=== PATIENT | female | born 1930 | race Caucasian/White ===

== ENCOUNTER 2016-08-18 21:54 | Inpatient (IN) | payer OTHER ==
[~2016-08-18] VITALS: Ht 147.3 cm; Wt 64.0 kg
[~2016-08-18 21:54] MED LIST: AMLODIPINE BESYL5 M1 PO
--- NOTE | 2016-08-18 22:08 | ED DYSPNEA/ASTHMA COMPLAINT ---
History of Present Illness General Chief Complaint: Dyspnea (COPD, CHF, Other) Stated Complaint: PT IS HAVING SOB ,LT ARM PAIN, Source: patient, family, old records Exam Limitations: no limitations Vital Signs & Intake/Output Vital Signs & Intake/Output Vital Signs Date Time Temp Pulse Resp B/P B/P Pulse O2 O2 Flow FiO2 Mean Ox Delivery Rate 08/18 2319 Room Air 08/18 2220 98.1 58 20 129/65 95 Room Air ED Intake and Output 08/19 0000 08/18 1200 Intake Total Output Total Balance Patient 143 lb Weight Weight Reported by Patient Measurement Method Allergies Coded Allergies: shellfish derived (GOUT FLARE UP 08/18/16) Reconcile Medications Allopurinol 300 MG TABLET 300 MG PO DAILY GOUT (Reported) Amlodipine Besylate 5 MG TABLET 1 TAB PO DAILY HTN (Reported) Aspirin (Aspirin*) 81 MG TAB.CHEW 81 MG PO DAILY HEART (Reported) Calcium Carbonate/Vitamin D3 (Caltrate 600 + D Tablet) 600 MG-800 TABLET 600 MG PO DAILY VITAMIN (Reported) Furosemide 20 MG TABLET 20 MG PO DAILY HEART (Reported) Metoprolol Succ XL (Toprol XL) 25 MG TAB 25 MG PO DAILY HEART (Reported) Simvastatin (Zocor*) 40 MG TABLET 40 MG PO AT BEDTIME CHOLESTEROL (Reported) Valsartan (Diovan) 80 MG TABLET 80 MG PO DAILY HTN (Reported) Zolpidem Tartrate (Ambien) 5 MG TABLET 5 MG PO AT BEDTIME SLEEP (Reported) Triage Nurses Notes Reviewed? yes Onset: Gradual Duration: day(s):, waxing and waning Timing: recent history Severity: moderate Activities at Onset: none Prior Episodes/Possible Cause: no prior episodes Modifying Factors: Improves With: rest. Associated Symptoms: weakness HPI: 85 yo woman h/o VT in 2008, presents with dyspnea for the past 2 weeks, getting worse today. She shares, "the doctor told me to take extra lasix pills and I started urinating this evening, but I am still so short of breath." She notes coughing, with some phlegm, as well as orthopnea. No fever, chills, headache, syncopal symptoms. She notes left arm pain and slight chest pressure "all day." She notes her heart, "feels like it flips sometimes." She notes, "I can't even walk, I am so tired... I get short of breath even just walking in the kitchen." Past History Travel History Traveled to [place] past 21 day No Medical History Any Pertinent Medical History? see below for history Cardiovascular: hypertension, hyperlipidemia Musculoskeletal: gout GLOBAL COMPENSATION DIRECTOR/Reproductive: UTERINE PROLAPSE Surgical History Surgical History: non-contributory Psychosocial History What is your primary language Algerian Family History Hx Contributory? No Review of Systems Review of Systems Constitutional: Reports: no symptoms. EENTM: Reports: no symptoms. Respiratory: Reports: no symptoms. Cardiovascular: Reports: no symptoms. GI: Reports: no symptoms. Genitourinary: Reports: no symptoms. Musculoskeletal: Reports: no symptoms. Skin: Reports: no symptoms. Neurological/Psychological: Reports: no symptoms. Hematologic/Endocrine: Reports: no symptoms. Immunologic/Allergic: Reports: no symptoms. All Other Systems: Reviewed and Negative Physical Exam Physical Exam General Appearance: well developed/nourished, no apparent distress Head: atraumatic, normal appearance Eyes: Bilateral: normal appearance. Ears, Nose, Throat: normal pharynx Neck: normal inspection, supple, full range of motion Respiratory: chest non-tender, diminished on left base Cardiovascular: irregularly irregular Gastrointestinal: normal bowel sounds, soft Rectal: normal exam, normal rectal tone, heme negative stool Extremities: normal inspection, normal capillary refill, normal range of motion, no edema Neurologic/Psych: no motor/sensory deficits, awake, alert, oriented x 3 Skin: intact, normal color, warm/dry Core Measures ACS in differential dx? No Severe Sepsis Present: No Septic Shock Present: No Progress Differential Diagnosis: asthma, AMI, CHF, COPD, pneumonia, unstable angina, pleural effusion Plan of Care: Orders Procedure Date/time Status BASIC ELECTROLYTES PLUS BUN&CR 08/20 0400 Active Heart Healthy Diet 08/19 B Active TROPONIN LEVEL 08/19 1000 Active EKG 08/19 1000 Active CBC WITHOUT DIFFERENTIAL 08/19 0600 Active TROPONIN LEVEL 08/19 0400 Active EKG 08/19 0400 Active Code Status 08/19 0236 Active LOWER RESPIRATORY CULTURE 08/19 0228 Active Pathway - chart 08/19 0222 Active Pathway - chart 08/19 0220 Active House Staff 08/19 0220 Active Intake & Output 08/19 0218 Active Patient Data 08/19 0105 Active Saline Lock 08/19 0017 Active Misc Message 08/19 0017 Active ED Holding Orders 08/19 0017 Active Admit to inpatient 08/19 0017 Active Vital Signs 08/19 0017 Active Code Status 08/19 0017 Complete US-EXT BILAT VENOUS DOPPLER 08/19 UNK Active TRC EVALUATION (GEN) 08/19 UNK Active OXYGEN SETUP (GEN) 08/19 UNK Active Lab Add-on Test 08/19 UNK Active Weight 08/19 UNK Active VTE Mechanical Prophylaxis 08/19 UNK Active Vital Signs 08/19 UNK Active Intake & Output 08/19 UNK Active ECHOCARDIOGRAM 08/19 UNK Active EKG 08/18 2249 Active THYROID STIMULATING HORMONE 08/18 2214 Active GLYCOSYLATED HGB 08/18 2214 Active FREE T4 08/18 2214 Active B-TYPE NATRIURETIC PEP (BNP) 08/18 2214 Active TROPONIN LEVEL 08/18 2157 Active LIPASE 08/18 2157 Active HEPATIC FUNCTION PANEL 08/18 2157 Active D-DIMER 08/18 2157 Complete CBC WITHOUT DIFFERENTIAL 08/18 2157 Complete BASIC METABOLIC PANEL 08/18 2157 Active AMYLASE 08/18 2157 Active EKG 08/19 2155 Active Current Medications Sig/Jaswatn Start time Last Medication Dose Stop Time Status Admin Zolpidem Tartrate 5 MG AT BEDTIME 08/19 2200 UNVr (Ambien) Atorvastatin Calcium 20 MG 1700 08/19 1700 UNVr (Lipitor) Amlodipine Besylate 5 MG DAILY 08/19 1000 UNVr (Norvasc) Aspirin 81 MG DAILY 08/19 1000 UNVr (Aspirin) Calcium/Vitamin D 1 TAB DAILY 08/19 1000 UNVr (Caltrate 600 + D) Metoprolol Succinate 25 MG DAILY 08/19 1000 UNVr (Toprol XL) Furosemide 40 MG 7:30 AM, & 4:30 PM 08/19 0730 UNVr (Lasix) Acetaminophen 650 MG Q6P PRN 08/19 0230 UNVr (Tylenol) Acetaminophen/ 1 TAB Q6P PRN 08/19 0230 UNVr Hydrocodone Bitart (Vicodin) Morphine Sulfate 2 MG Q4P PRN 08/19 0230 UNVr (Morphine) Heparin Sodium 25,000 UNIT Q24H 08/19 0030 AC 08/19 (Porcine) 0141 (Heparin) Sodium Chloride 500 ML Laboratory Tests 08/18/165: Anion Gap 14, Estimated GFR 39 L, BUN/Creatinine Ratio 28.5 H, Glucose 108 H, Hemoglobin A1c Pending, Calcium 9.3, Total Bilirubin 0.6, Direct Bilirubin 0.4, AST 24, ALT 31, Alkaline Phosphatase 69, Troponin I < 0.01, Aes-K-Wmpktdzzanw Pept 3660 H, Total Protein 6.7, Albumin 3.7, Amylase 60, Lipase 87, TSH Pending , Free T4 Pending, D-Dimer 2884 H, CBC w Diff NO MAN DIFF REQ, RBC 4.59, MCV 89.6, MCH 28.6, RDW 14.6 H, MPV 9.4, Gran % 59.3, Lymphocytes % 29.4, Monocytes % 9.4 H, Eosinophils % 1.5, Basophils % 0.4, Absolute Granulocytes 3.8, Absolute Lymphocytes 1.9, Absolute Monocytes 0.6, Absolute Eosinophils 0.1, Absolute Basophils 0, PUBS MCHC 31.9 L 08/18/162207: Ayx-S-Acfukvaesfk Pept Cancelled Microbiology 08/20 227 LOWER RESP: Respiratory Culture - ORD 08/20 227 LOWER RESP: Gram Stain - ORD Diagnostic Imaging: Viewed by Me: Radiology Read. Discussed w/RAD: Radiology Read. CXR Impression: MODERATE PLEURAL EFFUSION... FULL REPORT BELOW. Initial ED EKG: AFIB Prior EKG: changed Repeat EKG: unchanged Comments: PATIENT: ANANDA CALHOUN PRESENT AGE: 85 PATIENT ACCOUNT NO: [id number] : 29 LOCATION: [facility] ORDERING PHYSICIAN: SEVERINO REYNA MD SERVICE DATE: 08/18/16 EXAM TYPE: RAD - XRY-PORTABLE CHEST XRAY EXAMINATION: XR PORTABLE CHEST CLINICAL INFORMATION: Chest pain COMPARISON: 08/05/2016 TECHNIQUE: Portable AP view of the chest was obtained. FINDINGS: Cardiac leads overlie the chest. Mitral valvular hardware in place. Median sternotomy wires appear intact. The lungs are well expanded. There is increased moderate left pleural effusion with airspace opacity. The right lung is clear. No pneumothorax. The cardiomediastinal silhouette is unchanged with a calcified aorta. IMPRESSION: Increased moderate left pleural effusion with airspace opacity. DICTATED BY: CHINO ESTRADA,ALAN DATE/TIME DICTATED:08/18/162257 GUSSET STITCHER:KARON DATE/TIME TRANSCRIBED:08/18/162257 CONFIDENTIAL, DO NOT COPY WITHOUT APPROPRIATE AUTHORIZATION. <Electronically signed in Other Vendor System> SIGNED BY: CHINO ESTRADA,ALAN 08/18 4124 Departure Departure Disposition: STILL A PATIENT Condition: Stable Clinical Impression Primary Impression: Pleural effusion Secondary Impressions: Dyspnea, Elevated d-dimer, New onset atrial fibrillation, Renal failure Referrals: Fer CASTANO MD (PCP/Family) Departure Forms: Customer Survey General Discharge Information Comments 08/18/16, 23:24... discussed with supervisor sound technician... gfr is less than 45... unable to do ct angio. 08/19/16, 0:11... discusse with cards, Dr. Mccann... will place patient on heparin... will need v/q in AM. Admission Note Spoke With: DWAYNE SHAH MD Documentation of Exam: Documentation of any treatments & extenuating circumstances including Concerns Regarding Discharge (functional status, medication knowledge or non-compliance, living conditions, etc.) that warrant an admission rather than observation: pt with new onset atrial fibrillation, significantly increasing left pleural effusion, chest pain, elevated dimer... pt merits rule out, consider v/q. pt likely needs thorocentesis. cards to consult in am. Critical Care Note Critical Care Note Critical Care Time: 30-74 min
--- NOTE | 2016-08-18 22:23 | NUR ---
Informed waiting has been performed.
--- NOTE | 2016-08-18 22:23 | NUR ---
TRIAGE: PT TO ER WITH SON C/C L ARM PAIN, ONSET 19:00, CONSTANT SINCE ONSET, UNRELIEVED WITH ASPERCREME. ALSO REPORTS SOB SINCE LAST WEEK S/P "A PROBLEM WITH TOO MUCH WATER IN HER LUNGS" PER SON. HAD XRAYS DONE AND LASIX DOSE DOUBLED BY DR CASTANO WHO ALSO ADVISED GOING TO ER IF NOT IMPROVED. HAD EKG AND EVAL BY DR REYNA IN [place] PRIOR TO TRIAGE. LABS ALSO DRAWN IN [place] BY MARS ESPANA PRIOR TO TRIAGE.
[2016-08-18 22:32] LABS: ABSOLUTE BASOPHIL COUNT 0 /CUMM (0.0-0.2); ABSOLUTE EOSINOPHIL COUNT 0.1 /CUMM (0.0-0.7); ABSOLUTE GRANULOCYTE CT 3.8 /CUMM (1.4-6.5); ABSOLUTE LYMPH COUNT 1.9 /CUMM (1.2-3.4); ABSOLUTE MONOCYTE COUNT 0.6 /CUMM (0.10-0.60); BASOPHIL % 0.4 % (0.0-2.0); EOSINOPHIL % 1.5 % (0-5); GRANULOCYTE % 59.3 % (42.2-75.2); HEMATOCRIT 41.2 % (37-47); MEAN CORPUSCULAR HGB 28.6 PG (27.0-31.0); MEAN CORPUSCULAR HGB CONC 31.9 G/DL (33.0-37.0); MEAN CORPUSCULAR VOLUME 89.6 FL (81.0-99.0); MEAN PLATELET VOLUME 9.4 FL (7.4-10.4); PLATELET COUNT 192 /CUMM (130-400); RBC DISTRIBUTION WIDTH 14.6 % (11.5-14.5); RED BLOOD CELL CT 4.59 /CUMM (4.20-5.40); WHITE BLOOD CELL COUNT 6.4 /CUMM (4.8-10.8)
--- NOTE | 2016-08-18 23:02 | RADIOLOGY REPORT ---
EXAMINATION: XR PORTABLE CHEST CLINICAL INFORMATION: Chest pain COMPARISON: 08/05/2016 TECHNIQUE: Portable AP view of the chest was obtained. FINDINGS: Cardiac leads overlie the chest. Mitral valvular hardware in place. Median sternotomy wires appear intact. The lungs are well expanded. There is increased moderate left pleural effusion with airspace opacity. The right lung is clear. No pneumothorax. The cardiomediastinal silhouette is unchanged with a calcified aorta. IMPRESSION: Increased moderate left pleural effusion with airspace opacity.
--- NOTE | 2016-08-18 23:11 | NUR ---
PT TO ROOM 5 C/C 1 DAY HX OF LEFT UPPER ARM PAIN, DENIES CHEST PAIN OR SOB. ADMITS TO RECENT EXACERBATION OF CHF, TOOK 60 MG LASIX THIS AM
--- NOTE | 2016-08-18 23:15 | NUR ---
AT BEDSIDE IV EST #20 IN RIGHT FOREARM
--- NOTE | 2016-08-18 23:19 | NUR ---
PT MEDICATED WITH 325MG ASPIRIN PER EMAR
--- NOTE | 2016-08-19 01:17 | History & Physical ---
MARCO ESTRADA,ANALISA 08/19/16 0117: General Information and HPI MD Statement: I have seen and personally examined ANANDA CALHOUN and documented this H&P. The patient is a 85 year old F who presented with a patient stated chief complaint of []. 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 Patient states that since last couple of months she was having swelling in her legs and was following Dr. Haskins. Since last 2 weeks she started having generalized weakness , cough with occasional phlegm. Since last 1 week she was feeling short of breath, so she took the consult from her PCP who advised chest x-ray. Chest x-ray showed left-sided pleural effusion. She was given 20 milligrams of Lasix. It was an effective. She continues to have short of breath and decreased urine output. She again called her PCP who advised for 2 tablets of the Lasix. She had increased urine output. Yesterday night, she was started having pain in the chest which was radiating to left arm and was associated with shortness of breath. So she called her son who advised her to go to ED. She describes her chest pain as a pressure and pain in the left arm as kind of muscular pain. She denies recent fever, dizziness, headache, nausea, vomiting, sore throat, symptoms of GERD, abdominal pain, diarrhea, constipation, dysuria, hematuria, sick contact. She is also taking care of fluid intake to around 1000cc/day, she is not controlling salt intake. 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 Allergies/Medications Allergies: Coded Allergies: shellfish derived (GOUT FLARE UP 08/18/16) Past History Travel History Traveled to [place] past 21 day No Medical History Neurological: NONE EENT: NONE Cardiovascular: hypertension, hyperlipidemia, "BROKEN HEART SYNDROME IN 2007" OR TAKOTSUBO CARDIOMYOPATHY Respiratory: ?FLUID ON THE LUNG Gastrointestinal: NONE Hepatic: NONE Renal: NONE Musculoskeletal: gout Psychiatric: NONE Endocrine: NONE Blood Disorders: NONE Cancer(s): NONE 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 Denies: chills, diaphoresis, fever. EENTM: Denies: no symptoms. Cardiovascular: Reports: chest pain, edema, orthopena, peripheral edema. Denies: palpitations. Respiratory: Reports: cough, short of breath, sputum production. Denies: hemoptysis, orthopnea, stridor, wheezing. GI: Denies: abdominal pain, bloating, constipation, diarrhea, distention, melena, nausea, vomiting. Genitourinary: Denies: no symptoms. Musculoskeletal: Denies: no symptoms. Skin: Denies: no symptoms. Exam & Diagnostic Data Last 24 Hrs of Vital Signs/I&O Vital Signs Date Time Temp Pulse Resp B/P B/P Pulse O2 O2 Flow FiO2 Mean Ox Delivery Rate 08/18 2319 Room Air 08/18 2220 98.1 58 20 129/65 95 Room Air Intake & Output 08/19 0800 08/19 0000 08/18 1600 Intake Total Output Total Balance Patient 64.864 kg Weight Weight Reported by Patient Measurement Method Physical Exam General Appearance Alert, Oriented X3, Cooperative, No Acute Distress Skin No Rashes, No Breakdown, No Significant Lesion HEENT Atraumatic, PERRLA, EOMI Neck Supple, No JVD Cardiovascular Normal S1, Normal S2, murmur present systolic Lungs decrease air entry on left base Abdomen Soft, No Tenderness, No Hepatospenomegaly Neurological Normal Speech Extremities No Clubbing, No Cyanosis, No Edema Vascular Normal Pulses, Pulses Symmetrical Last 24 Hrs of Labs/Chaitanya: Laboratory Tests 08/19/16 0400: Sodium Pending, Potassium Pending, Chloride Pending, Carbon Dioxide Pending, Anion Gap Pending, BUN Pending, Creatinine Pending, BUN/Creatinine Ratio Pending , Troponin I Pending, CBC w Diff NO MAN DIFF REQ, RBC 4.47, MCV 89.0, MCH 29.0, RDW 14.3, MPV 9.3, Gran % 48.8, Lymphocytes % 39.3, Monocytes % 8.7, Eosinophils % 2.5, Basophils % 0.7, Absolute Granulocytes 3.1, Absolute Lymphocytes 2.5, Absolute Monocytes 0.5, Absolute Eosinophils 0.2, Absolute Basophils 0, PUBS MCHC 32.6 L 08/18/165: Anion Gap 14, Estimated GFR 39 L, BUN/Creatinine Ratio 28.5 H, Glucose 108 H, Hemoglobin A1c Pending, Calcium 9.3, Total Bilirubin 0.6, Direct Bilirubin 0.4, AST 24, ALT 31, Alkaline Phosphatase 69, Troponin I < 0.01, Ymd-G-Kltanhoabfd Pept 3660 H, Total Protein 6.7, Albumin 3.7, Amylase 60, Lipase 87, TSH 6.840 H, Free T4 1.49, D-Dimer 2884 H, CBC w Diff NO MAN DIFF REQ, RBC 4.59, MCV 89.6 , MCH 28.6, RDW 14.6 H, MPV 9.4, Gran % 59.3, Lymphocytes % 29.4, Monocytes % 9.4 H, Eosinophils % 1.5, Basophils % 0.4, Absolute Granulocytes 3.8, Absolute Lymphocytes 1.9, Absolute Monocytes 0.6, Absolute Eosinophils 0.1, Absolute Basophils 0, PUBS MCHC 31.9 L 08/18/162207: Fsb-Z-Mjhnxwwrzyy Pept Cancelled Microbiology 08/20 399 UPPER RESP: Surveillance Culture - RECD 08/19 299 GI: Surveillance Culture - ORD 08/20 227 LOWER RESP: Respiratory Culture - ORD 08/20 227 LOWER RESP: Gram Stain - ORD Diagnostic Data EKG Results AF, HR-94, NJ -220,Qtc-437 I, aVL -inverted T wave CXR Results Increased moderate left pleural effusion with airspace opacity Assessment/Plan Assessment: Patient is an 85-year-old female with significant past medical history of presbycusis , gout, mitral valve replacement -bioprosthetic valve, TacoSubo cardiomyopathy, 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 Vital signs at the time of admission-temperature 98.1, pulse 58, respiratory rate 20, blood pressure 129/65, SPO2 95% on room air EKGatrial fibrillation, heart rate 94, NJ intervals 220, QTC 431, I, aVL, inverted T waves Chest x-ray - increased moderate left pleural effusion with airspace opacity. Plan - Moderate Left Sided pleural effusion - * It can be secondary to the infection, CHF, malignancy, PE * We will repeat BEP in the morning. If creatinine get improved than we will do CTA to rule out pulmonary embolization, but if creatinine remains elevated, then we will consider VQ scan. * We will consider diagnostic and therapeutic thoracentesis * If needed, we will place a consult for pulmonology for further evaluation and management Acute coronary syndrome, ? CHF * We will admit the patient to telemetry * We will do serial EKG and troponin * We will place a cardiology consult with Dr. Haskins and follow his recommendation * We will continue tab aspirin and statins * We'll follow echocardiogram * We will continue heparin drip * If Patients oxygen requirement increased to more than 4 liters, then we will consider Lasix New onset atrial fibrillation * We'll monitor the patient to telemetry floor * If she remains tachycardic, then we will consider Cardizem drip * We will continue heparin drip Acute on chronic kidney disease * We will held his Lasix and valsartan * We will repeat BEP in the morning. If creatinine get improved than we will do CTA to rule out pulmonary embolization, but if creatinine remains elevated, then we will consider VQ scan. Hypertension * We'll continue amlodipine and metoprolol Gout * We will hold allopurinol as the patient is having renal involvement/high creatinine Diet -heart healthy diet with fluid restriction to 1 liter, low salt intake DVT prophylaxis-ALP S/heparin CODE STATUS-DNR/DNI As Ranked By This Provider Problem List: 1. Pleural effusion 2. New onset atrial fibrillation 3. CHF (congestive heart failure) 4. Acute coronary syndrome 5. Gout 6. Acute kidney injury superimposed on chronic kidney disease Core Measures/Miscellaneous Acute Coronary Syndrome ACS Diagnosis: No Cerebrovascular Accident CVA/TIA Diagnosis: No Congestive Heart Failure CHF Diagnosis: No Venous Thromboembolism VTE Risk Factors: Age > 40, CHF or Resp failure, Obesity No Mech VTE prophylaxis d/t: No contraindications No VTE Pharm Prophylaxis d/t: No contraindications VTE Diagnosis: No VTE Type: NONE VTE Confirmed by (Test): NONE Severe Sepsis Severe Sepsis Present: No Septic Shock Septic Shock Present: No Miscellaneous Documentation Attending Case Discussed With: DWAYNE SHAH MD Primary Care Physician: Fer CASTANO MD Patient sees these Specialists Cardiolgy - Dr Haskins Level of Patient Care: Telemetry NICOLE DURHAM 08/19/16 0118: General Information and HPI Allergies/Medications Home Med list Allopurinol 300 MG TABLET 300 MG PO DAILY GOUT (Reported) Amlodipine Besylate 5 MG TABLET 1 TAB PO DAILY HTN (Reported) Aspirin (Aspirin*) 81 MG TAB.CHEW 81 MG PO DAILY HEART (Reported) Calcium Carbonate/Vitamin D3 (Caltrate 600 + D Tablet) 600 MG-800 TABLET 600 MG PO DAILY VITAMIN (Reported) Furosemide 20 MG TABLET 20 MG PO DAILY HEART (Reported) Metoprolol Succ XL (Toprol XL) 25 MG TAB 25 MG PO DAILY HEART (Reported) Simvastatin (Zocor*) 40 MG TABLET 40 MG PO AT BEDTIME CHOLESTEROL (Reported) Valsartan (Diovan) 80 MG TABLET 80 MG PO DAILY HTN (Reported) Zolpidem Tartrate (Ambien) 5 MG TABLET 5 MG PO AT BEDTIME SLEEP (Reported) Resident Review Statement Resident Statement: examined this patient, discussed with financial intern, agreed with financial intern, discussed with family, reviewed EMR data (avail), discussed with nursing , discussed with case mgmt, reviewed images, amended to note Other Findings: 85-year-old female with a past medical history of [place] 2008, CHF, hypertension, mitral valve replacement in 2004 hyperlipidemia, gout presented to the ED with chief complaints of dyspnea that has been going on for the past 2 weeks and has been progressively getting worse. According to the patient she was in her usual state of health more than a week ago when she started to experience shortness of breath and went to her doctor who placed her on water pills around August 05. He also sent her for x-rays which revealed some pleural effusion. She was started on 20 mg of Lasix by her primary care physician. She states that over the course of the next few days her shortness of breath continued to improve however with this morning and just got worse and she called her primary care physician Dr. Kat who asked her to take 2 more doses of Lasix in addition to 20 mg that she had already taken. Of note she has not been urinating much within the past couple of days. She states that she went to bed this evening and felt pain in her left arm. She states that she worked aspirin cream which did not really help her and so got her anxious, she became more short of breath and called her son and decided to come to the ER for further evaluation. Of note patient's been experiencing some chest discomfort at rest. She denies palpitations but doesn't source and orthopnea, swelling in her legs. Travel history is pertinent for a trip to [place] back in May. She states when she was in [place] she had been going to the gym and walking and working out probably 40 minutes without any exertional shortness of breath. However recently she's been getting short of breath while walking even a few 100 yards. She denies any upper respiratory infection but does endorse coughing stating that she is bringing up clear phlegm. She denies any fever, chills, sore throatl noncompliance with her medications, and states that she saw Dr. Francois about 4 months ago at the time she was doing pretty well. She has never smoked and she denies any history of alcohol abuse. Vitals on admission blood pressure 129/65, respiratory rate of 20, pulse 58, afebrile saturating 95 on room air. On physical exam, she is an obese female, alert and oriented 3, hard of hearing sitting comfortably in bed. HEENT revealed PERRLA, moist mucous membranes. Examination of the neck revealed no JVD. 7 cm. Cardiovascular exam revealed a grade 3 x 6 systolic murmur heard best at the right sternal border with murmur radiating to the back. Normal S1, S2, no rubs or gallops appreciated. Respiratory exam was pertinent for decreased breath sounds in her left lower lobe, no wheezes rales or crackles appreciated. Abdominal exam is benign with abdomen soft, nontender, nondistended with bowel sounds heard in all 4 quadrants. Examination of the lower extremities revealed right lower extremity will be more swollen compared to the left with bilateral 1+ edema. Neuro exam was grossly unremarkable. Labs pertinent for normal white blood cell count of 6400, H&H of 13.1/41.2, normal MCV of 89.6 with a platelet count of 192,000. Serum chemistries and revealed sodium of 139, potassium 6, bicarbonate of 29, normal anion gap of 14, BUN 37, creatinine 1.3 (baseline is 1), LFTs unremarkable with an AST/ALT of 24/ 31, total bili chip 0.6, pulse of 69 with a troponin first set negative at less than 2.01 with a proBNP of 3660. Serum amylase 60 and lipase 87. D-dimer elevated to 2884. Chest x-ray showed mitral valvular hardware in place, lungs well expanded, increased moderate left pleural effusion with airspace opacity, right lung is clear with no pneumothorax, cardiomegaly is also unchanged with a calcified aorta. Last stress test in December 2014 showed no EKG evidence of stress-induced myocardial ischemia EKG revealed atrial fibrillation with a heart rate about 100 100s, PVCs, poor R- wave progressions, nonspecific ST-T changes in lead I and aVL. In the ER she received aspirin 325 mg oral 1 and was started on heparin drip. Assessment and plan Admit patient to telemetry. # Dyspnea Most likely secondary to left-sided pleural effusion 2/2 decompensated heart failure versus parapneumonic effusion (unlikely as she is afebrile, does not have a white blood cell count, is not bringing up purulent productive phlegm) versus malignancy (unlikely - no hx of smoking, no weight loss ets) Follow-up echocardiogram to rule out worsening valvular pathology D-dimer elevated to 2884, would consider CTA to rule out pulmonary embolism if serum creatinine improves, else V/Q scan for pulmonary embolism. Of note she is already on anticoagulation for her atrial fibrillation. Consider Lasix 40 mg IV 1 if her oxygen saturations 4 [place]er was requiring greater than 4 L of O2 by nasal cannula. Ultrasound Doppler of lower extremities to rule out DVT. Cardiology consult in a.m. with Dr. Francois Follow-up troponins and EKG at 4 AM and 10 AM to rule out ACS. #New onset A. fib Currently heart rate is in the 1 teens A heart rate is less than 1 10 bpm Her [id number] is 3 and she has been started on heparin for anticoagulation IV Cardizem pushes of 5 mg a heart rate is more than 1:30. Follow-up TSH and free T4 #Coronary artery disease Continue on atorvastatin 20 mg daily, aspirin 81 mg daily, Toprol-XL 25 mg daily. We'll hold losartan for now given AK I #AK I Her baseline creatinine is 1.0 This is most likely prerenal in the setting of dehydration versus use of Lasix vs. cardiorenal Continue to hold Lasix for now as well as losartan Nephrotoxic agents Follow-up BEP in a.m. #Impaired glycemia Most likely secondary to stress Follow-up hemoglobin A1c #Hx of Gout - On Allopurinol - Holding for now, given LYNSEY - Resume in AM if BEP is normal. - DVT prophylaxis On heparin 5000 international units 3 times a day subcutaneous Diet Heart healthy CODE STATUS DNR DNI DWAYNE SHAH 08/19/16 0508: Attending MD Review Statement Attending Statement Attending MD Statement: examined this patient, discuss w/resident/PA/CHANGEOVER OPERATOR, agreed w/resident/PA/CHANGEOVER OPERATOR, reviewed EMR data (avail), reviewed images, amended to note Attending Assessment/Plan: CC: Left shoulder Pain PMH: Gout, mitral wall replacement, "broken heart syndrome", HTN, HLD Patient's son insisted her to go to ER for persistent left arm pain. Pain started yesterday, gradual onset, nonradiating, no chest pain but chest tightness. Patient also complains of shortness of breath, which has been progressively worsening since last 3 weeks, dyspnea on exertion, then at rest, associated with leg swellings and dry cough. Patient followed up with PCP, obtain chest x-ray on August 06, she was told that she has some fluid on the left side of the, prescribed Lasix. She took 2 tablets and initial day, followed by daily tablet for one whole week. PCP called her back to follow-up, her symptoms were not getting better, so additional dose of Lasix was advised, if no relief then he suggested to go to ER. With additional dose of Lasix, patient had good urine output according to her. But she was feeling very weak and lethargic the whole day, and in the evening left arm pain started, when her son insisted to go to ER. She denies any dizziness, palpitations, headache, presyncopal symptoms, initial episode of URI symptoms, fever, chills. She does have some orthopnea. Vitals: Tachycardia, blood pressure 129/65. Afebrile On exam: A O 3, cooperative, no acute distress, neck supple, JVD minimally elevated, no lymphadenopathy, mucosa dry, no focal neurological deficit except left-sided facial twitching intermittently, no dependent edema, no obvious skin rashes or inflammation CVS: S1-S2, irregular, tachycardia, diastolic murmur mitral area, going to axilla RS: Decreased air entry left base, no crackles. Abdomen: Soft, NT, ND, bowel sounds present. Labs: WBC 6.4, granulocytes 59%, chloride 96, BUN 37, creatinine 1.3, glucose 108, calcium 9.3, troponin less than 0.01 proBNP 3660, d-dimer 2884. CXR: Increased moderate left pleural effusion with airspace opacity. EKG: A. fib A and P Patient comes in ER for persistent left arm pain, has some chest tightness but denies chest pain, chronic nonproductive cough, worsening dyspnea on excision. She is found to have A. fib probably new onset, worsening left pleural effusion with suspected airspace opacity. Patient does not have fever, chills at home, denies any URI symptoms at the beginning, no significant leukocytosis or left shift, less likely pneumonia. The same time patient's proBNP and d-dimer elevated, indicating heart failure and pulmonary embolism and differential. Minimally elevated JVD. Elevated creatinine and BUN appears most likely secondary to Lasix. # Left arm pain rule out ACS # New onset A. fib # Left-sided pleural effusion # Suspected heart failure ?Valvular disease # History of mitral wall replacement # Rule out pulmonary embolism # History of hypertension, gout - Admit to telemetry - Continuous telemetry monitoring - If heart rate persistently above 120, push of Cardizem +/- drip, if blood pressure stable - Continue heparin drip - Serial EKG and troponin - Hold Lasix and valsartan - Repeat BMP in a.m. - If creatinine improving then CTA, if creatinine is elevated then VQ scan to rule out PE - 2-D echo - Cardiology consult - According to findings on 2-D echo and VQ scan are CTA : Consult IR for thoracentesis, diagnostic - Bilateral lower extremity DVT Doppler - Continue aspirin, amlodipine, allopurinol , statin - Resume metoprolol at lower dose tomorrow if okay with cardiology
--- NOTE | 2016-08-19 01:30 | NUR ---
2ND IV SITE STARTED, PATENT, DRY AND INTACT.
--- NOTE | 2016-08-19 01:41 | NUR ---
PT MEDICATED WITH 5,000UNITS OF HEPARIN BOLUS AND HEPARIN DRIP @24.6 MLS/HR. DOSE DOUBLE CHECKED BY GRANT CHAUDHRY.
[2016-08-19] MEDS ORDERED: AMLODIPINE BES2.5 M1 PO (02:13)
[2016-08-19] MEDS ORDERED: DIOVAN80 M1 PO (02:14)
[2016-08-19] MEDS ORDERED: ASPIRIN81 M4 PO (02:15)
[2016-08-19] MEDS ORDERED: TOPROL XL25 M1 PO (02:15)
[2016-08-19] MEDS ORDERED: ALLOPURINOL300 M1 PO (02:15)
[2016-08-19] MEDS ORDERED: ZOCOR40 M1 PO (02:16)
[2016-08-19] MEDS ORDERED: CALTRATE 600 +1 EACH PO (02:17)
[2016-08-19] MEDS ORDERED: FUROSEMIDE20 M1 PO (02:17)
[2016-08-19] MEDS ORDERED: AMBIEN5 M1 PO (02:18)
--- NOTE | 2016-08-19 02:40 | NUR ---
HOUSE STAFF AT BEDSIDE
--- NOTE | 2016-08-19 02:51 | NUR ---
REPORT GIVEN TO GRANT SOTO
[2016-08-19 03:15] VITALS: BP 110/60
[2016-08-19 04:24] LABS: ABSOLUTE BASOPHIL COUNT 0 /CUMM (0.0-0.2); ABSOLUTE EOSINOPHIL COUNT 0.2 /CUMM (0.0-0.7); ABSOLUTE GRANULOCYTE CT 3.1 /CUMM (1.4-6.5); ABSOLUTE LYMPH COUNT 2.5 /CUMM (1.2-3.4); ABSOLUTE MONOCYTE COUNT 0.5 /CUMM (0.10-0.60); BASOPHIL % 0.7 % (0.0-2.0); EOSINOPHIL % 2.5 % (0-5); GRANULOCYTE % 48.8 % (42.2-75.2); HEMATOCRIT 39.8 % (37-47); MEAN CORPUSCULAR HGB CONC 32.6 G/DL (33.0-37.0); MEAN PLATELET VOLUME 9.3 FL (7.4-10.4); PLATELET COUNT 163 /CUMM (130-400); RBC DISTRIBUTION WIDTH 14.3 % (11.5-14.5); RED BLOOD CELL CT 4.47 /CUMM (4.20-5.40); WHITE BLOOD CELL COUNT 6.3 /CUMM (4.8-10.8)
--- NOTE | 2016-08-19 04:55 | NUR ---
ADMISSION NOTE- Patient arrives to Rm 103 as Tele hold at 0315am. She is able to transfer self to bed without difficulty. Patient is A&Ox3, follows commands and moves all extremities. 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 Patient is A-fib/flutter on monitor with HR in 70-100's. BP on admit is 110/60 manual. The patient is on RA with sat 96-99%. Patient is diminished to left lung base and has a dry non-productive cough. She is mildly SOB with exertion without a drop in O2 sat. She is able to ambulate to bathroom with standby assistance due to all the wires and tubing. Patient's skin is intact without edema. She has 2 patent peripheral IV's, PIVO connector placed on RFA IV. Heparin GTT infusing through LH at 23.2ml/hr or 18units/kg/hr. Patient states she is tired, and does have some anxiety about her worsening health and the fact that she is in the ICU. Patient is reassured that she is in ICU as a tele hold. Dr. Ordoñez at bedside. No further complaints from patient. Will cont to monitor.
--- NOTE | 2016-08-19 05:10 | Admission Certification ---
Admission Certification Certification Statement - As attending physician, I certify that at the time of - admission, based on clinical presentation, severity of - symptoms, need for further diagnostic testing and - therapeutic interventions, and risk of adverse outcomes - without in-hospital treatment, in my clinical assessment, - this patient requires an acute hospital stay for a minimum - of two nights or longer. I have also considered psychsocial - factors such as support system, advanced age, financial - issues, cognitive issues, and failed out-patient treatments, - past re-admission history, safety of patient, and lack of - compliance as applicable. Specific rationale supporting this admission is: New onset A. fib, left-sided pleural effusion
[2016-08-19 07:00] VITALS: BP 110/66
--- NOTE | 2016-08-19 08:22 | PN- Housestaff ---
See Addendum FOZIA ESTRADA,DWIGHT 08/19/16 0822: Subjective Follow-up For: 1- Left arm aleena, R/O ACS 2- worsening SOB and LE edema with left sided pleural effusion 3- parizysmal Atrial flutter/fibrillation Tele-Events Since Last Visit: no overnight events, atrial flutter on the monitor and EKG that converted to sinus this morning. Subjective: I saw and examined the patient this am, she is a pleasant elderly lady, sitting comfortably in bed in no distress. 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 States that he was not able to sleep very well last night. Denies any shortness of breath at this moment, reports some pain in the left arm, no chest or palpations, no dizziness. Denies any sick contacts, any upper respiratory symptoms, has had fu shot this year. Reports one episode of urine with foul smell before admission but nothing afterwards, denies dysuria and denies changes in the color of urine. Has not had any bowel movement since yesterday, usually has it everyday. Review of Systems Constitutional: Denies: chills. EENTM: Reports: visual changes. Cardiovascular: Reports: peripheral edema. Denies: chest pain, palpitations, syncope. Respiratory: Denies: cough, orthopnea, short of breath. Gastrointestinal: Denies: abdominal pain, changes in stool. Genitourinary: Reports: no symptoms. Musculoskeletal: Reports: no symptoms. Skin: Reports: no symptoms. Objective Last 24 Hrs of Vital Signs/I&O Vital Signs Date Time Temp Pulse Resp B/P B/P Pulse O2 O2 Flow FiO2 Mean Ox Delivery Rate 08/19 0800 94 Room Air 08/19 0315 97.9 102 24 110/60 97 Room Air 08/18 2319 Room Air 08/18 2220 98.1 58 20 129/65 95 Room Air Intake & Output 08/19 1600 08/19 0800 08/19 0000 Intake Total Output Total Balance Patient 64.183 kg 64.864 kg Weight Weight Bed scale Reported by Patient Measurement Method Physical Exam General Appearance: Alert, Oriented X3, Cooperative, No Acute Distress Skin: No Significant Lesion Skin Temp/Moisture Exam: Warm/Dry Sepsis Skin Exam (color): Normal for Ethnicity HEENT: Atraumatic, EOMI, Mucous Membr. moist/pink Neck: Supple, mildly elevated JVD Cardiovascular: Regular Rate, Normal S1, Normal S2 Lungs: Clear to Auscultation, Normal Air Movement, decreased breath sounds on the left lower lungs Abdomen: Normal Bowel Sounds, Soft Neurological: Normal Speech, Normal Tone Extremities: 1+ pitting edema on both lower legs Vascular: Normal Pulses, Pulses Symmetrical Current Medications: Current Medications Sig/Jaswant Start time Last Medication Dose Route Stop Time Status Admin Acetaminophen 650 MG Q6P PRN 08/19 0230 AC PO Acetaminophen/ 1 TAB Q6P PRN 08/19 0230 AC Hydrocodone Bitart PO Amlodipine Besylate 5 MG DAILY 08/19 1000 AC PO Aspirin 81 MG DAILY 08/19 1000 AC PO Aspirin 0 .STK-MED ONE 08/18 2320 DC PO Aspirin 325 MG ONCE ONE 08/185 DC 08/18 PO 08/19 2315 2319 Atorvastatin Calcium 20 MG 1700 08/19 1700 AC PO Calcium/Vitamin D 1 TAB DAILY 08/19 1000 AC PO Furosemide 40 MG 7:30 AM, & 4:30 PM 08/19 0730 CAN IV Heparin Sodium 0 .STK-MED ONE 08/19 0046 DC (Porcine) .ROUTE Heparin Sodium 5,000 UNIT ONCE ONE 08/19 0030 DC 08/19 (Porcine) IV 08/19 0031 0141 Heparin Sodium 25,000 UNIT Q24H 08/19 0030 AC 08/19 (Porcine) IV 0141 Sodium Chloride 500 ML Metoprolol Succinate 25 MG DAILY 08/19 1000 AC PO Morphine Sulfate 2 MG Q4P PRN 08/19 0230 AC IV Zolpidem Tartrate 5 MG AT BEDTIME 08/19 2200 AC PO Last 24 Hrs of Lab/Chaitanya Results Last 24 Hrs of Labs/Mics: Laboratory Tests 08/19/16 0805: APTT Pending 08/19/16 0400: Anion Gap 13, Estimated GFR 47 L, BUN/Creatinine Ratio 29.1 H, Troponin I < 0.01, CBC w Diff NO MAN DIFF REQ, RBC 4.47, MCV 89.0, MCH 29.0, RDW 14.3, MPV 9.3, Gran % 48.8, Lymphocytes % 39.3, Monocytes % 8.7, Eosinophils % 2.5, Basophils % 0.7, Absolute Granulocytes 3.1, Absolute Lymphocytes 2.5, Absolute Monocytes 0.5, Absolute Eosinophils 0.2, Absolute Basophils 0, PUBS MCHC 32.6 L 08/18/165: Anion Gap 14, Estimated GFR 39 L, BUN/Creatinine Ratio 28.5 H, Glucose 108 H, Hemoglobin A1c Pending, Calcium 9.3, Total Bilirubin 0.6, Direct Bilirubin 0.4, AST 24, ALT 31, Alkaline Phosphatase 69, Troponin I < 0.01, [id number] Pept 3660 H, Total Protein 6.7, Albumin 3.7, Amylase 60, Lipase 87, TSH 6.840 H, Free T4 1.49, D-Dimer 2884 H, CBC w Diff NO MAN DIFF REQ, RBC 4.59, MCV 89.6 , MCH 28.6, RDW 14.6 H, MPV 9.4, Gran % 59.3, Lymphocytes % 29.4, Monocytes % 9.4 H, Eosinophils % 1.5, Basophils % 0.4, Absolute Granulocytes 3.8, Absolute Lymphocytes 1.9, Absolute Monocytes 0.6, Absolute Eosinophils 0.1, Absolute Basophils 0, PUBS MCHC 31.9 L 08/18/162207: [id number] Pept Cancelled Microbiology 08/19 0400 UPPER RESP: Surveillance Culture - RECD 08/19 299 GI: Surveillance Culture - COLB 08/20 227 LOWER RESP: Respiratory Culture - COLB 08/20 227 LOWER RESP: Gram Stain - COLB Assessment/Plan Assessment: Mrs. Pascual is a 85-year-old female with a past medical history of [place] 2008, CHF, hypertension, mitral valve replacement in 2004 hyperlipidemia, gout who presented to the ED with chief complaints of dyspnea that has been going on for the past 2 weeks and has been progressively getting worse. she had a CXR done 2 weeks ago, which reported pleural effusion and she was give one dose of 20 mg IV lasix at that time. Patient reported improvement in her SOB however in the morning prior to admission her SOB got worse and she called her primary care physician Dr. Kat who asked her to take 2 more doses of 20 mg Lasix. Of note she has not been urinating much within the past couple of days. She also reported one time of foul smelling urine. No dysuria. Assessment and plan She is admitted to telemetry. (in ICU as tele hold) Dyspnea Most likely secondary to left-sided pleural effusion 2/2 decompensated heart failure versus parapneumonic effusion (unlikely as she is afebrile, does not have a white blood cell count, is not bringing up purulent productive phlegm) versus malignancy (unlikely - no hx of smoking, no weight loss) Troponin negative x2, EKG Afib and flutter and converted to NSR this morning. * Follow-up echocardiogram to rule out worsening valvular pathology * D-dimer elevated to 2884, would consider CTA to rule out pulmonary embolism if serum creatinine improves. Of note she is already on anticoagulation for her atrial fibrillation. * Consider Lasix 40 mg IV 1 if her oxygen saturations 4 German was requiring greater than 4 L of O2 by nasal cannula. * Ultrasound Doppler of lower extremities to rule out DVT. * Cardiology consult placed, will appreciate recommendations New onset A. fib/flutter On admission had HR in 110s, Her [id number] is 3 and she has been started on heparin for anticoagulation TSH: 6.84 (H) Free T4: 1.49 (WNL) she converted back to sinus rhythm this morning. * continue IV heparin * repeat TSH Coronary artery disease Continue on atorvastatin 20 mg daily, aspirin 81 mg daily, Toprol-XL 25 mg daily. We'll hold losartan for now given LYNSEY LYNSEY Her baseline creatinine is 1.0. Today is improved to 1.1 This is most likely prerenal in the setting of dehydration versus use of Lasix vs. cardiorenal. * Continue to hold Lasix for now as well as losartan. * Nephrotoxic agents * Follow-up BEP in a.m. Hx of Gout On Allopurinol. Holding for now, given LYNSEY * will resume allopurinol when BEP back to baseline DVT prophylaxis: heparin 5000 IU TID, SC Heart healthy diet DNR DNI Problem List: 1. Chest pain 2. Pleural effusion 3. Gout 4. Acute kidney injury superimposed on chronic kidney disease 5. CHF (congestive heart failure) 6. New onset atrial fibrillation 7. New onset atrial fibrillation Pain Ratin Pain Location: left arm Pain Goal: Pain 4 or less Pain Plan: mild to mod pain with acetaminophen severe pain with morphine Tomorrow's Labs & Rationales: BEP (monitor kidney function) LORA LEOS MD 08/19/16 1145: Attending MD Review Statement Attending Statement Attending MD Statement: examined this patient, discuss w/resident/PA/SUPERVISOR [employer]ILDING [employer]INTENANCE, agreed w/resident/PA/SUPERVISOR [employer]ILD[employer]INTENANCE, reviewed EMR data (avail) Attending Assessment/Plan: 85F PMH HTN, HLD, Takotsubo cardiomyopathy, bioprosthetic mitral valve replacement admitted with left shoulder and arm pain progressive shortness of breath over the past few weeks with new onset atrial fibrillation, moderate left sided pleural effusion. Patient feels better today after IV diuresis. No chest pain or palpitations. Vitals stable. Labs show markedly elevated d-dimer. Renal function improved, creatinine 1.1 today. 1. Shortness of breath 2. Moderate left pleural effusion 3. New onset atrial fibrillation 4. Elevated d-dimer 5. LYNSEY 6. History of MVR 7. History of Takotsubo cardiomyopathy Plan - Continue on telemetry - Obtain CTA chest to rule out PE - Hydrate before and after to prevent contrast-induced nephropathy - Will continue IV Lasix and stop IV fluids after 1L - Obtain thoracentesis of left pleural effusion for evaluation of nature of effusion, culture, and cytology - Pulmonary consult - Follow cardiology recommendations - Monitor renal function - Continue heparin drip, will convert to Eliquis after thoracentesis - Continue Metprolol for rate control - Continue home medications 5. CHF (congestive heart failure) 6. New onset atrial fibrillation 7. New onset atrial fibrillation Pain Ratin Pain Location: left arm Pain Goal: Pain 4 or less Pain Plan: mild to mod pain with acetaminophen severe pain with morphine Tomorrow's Labs & Rationales: BEP (monitor kidney function)
[2016-08-19 08:51] LABS: PTT 92 SEC (25-37)
--- NOTE | 2016-08-19 10:06 | NUR ---
Patient is alert and oriented x's 3, able to follow commands and answer questions appropriately. She has converted to a 1st degree AV block with PAC's at around 0730 and an EKG was done for confirmation. Heart rate ranging from 70-90's. SBP: 110's and pt denies chest pain. Heparin gtt infusing per protocol with the next PTT due at 1500. On room air, lungs clear and diminished to the left- O2 sat stable at 94-96%. Pt denies any shortness of breath even with ambulation. She is indep OOB and was able to wash up indep. Skin is intact with trace BLE edema. She currently denies pain and vitals are stable. Ultrasound at the bedside for BLE US and ECHO is pending. Family has been updated on POC. Will continue to closely monitor patient.
--- NOTE | 2016-08-19 10:50 | ULTRASOUND REPORT ---
EXAMINATION: US TRIPLEX LOWER EXTREMITY, BILATERAL CLINICAL INFORMATION: Right greater than left lower extremity pain, rule out DVT. COMPARISON: None TECHNIQUE: Color-flow triplex imaging with spectral analysis and compression Doppler were performed on the bilateral lower extremities. FINDINGS: Respiratory variation, normal compression and augmented flow are noted throughout the bilateral lower extremities. The visualized common femoral vein, superficial femoral vein, profunda femoral vein, popliteal vein and midcalf peroneal and posterior tibial venous segments show no evidence of deep venous thrombosis. There is no Moncada's cyst. IMPRESSION: Normal triplex scan without evidence of deep venous thrombosis involving the bilateral lower extremities.
--- NOTE | 2016-08-19 11:18 | Cons- Cardiology ---
General Information and HPI Consulting Request Date of Consult: 08/19/16 Requested By: DWAYNE SHAH MD Reason for Consult: Shortness of breath History of Present Illness: The patient is an 85-year-old female with history of bioprosthetic mitral valve replacement, hypertension, hyperlipidemia who is followed in the office by Dr. Haskins. She presents with progressive shortness of breath and lower extremity edema. She was started on oral Lasix several weeks ago with partial improvement. She complains of recent cough. No chest pain. No palpitations. No syncope. No lightheadedness or dizziness. No nausea or vomiting. She is not aware of any history of atrial fibrillation or atrial flutter. She was noted in the emergency department to atrial fibrillation with controlled ventricular rate. This subsequently converted to atrial flutter, and then to sinus rhythm. Allergies/Medications Allergies: Coded Allergies: shellfish derived (GOUT FLARE UP 08/18/16) Home Med List: Allopurinol 300 MG TABLET 300 MG PO DAILY GOUT (Reported) Amlodipine Besylate 5 MG TABLET 1 TAB PO DAILY HTN (Reported) Aspirin (Aspirin*) 81 MG TAB.CHEW 81 MG PO DAILY HEART (Reported) Calcium Carbonate/Vitamin D3 (Caltrate 600 + D Tablet) 600 MG-800 TABLET 600 MG PO DAILY VITAMIN (Reported) Furosemide 20 MG TABLET 20 MG PO DAILY HEART (Reported) Metoprolol Succ XL (Toprol XL) 25 MG TAB 25 MG PO DAILY HEART (Reported) Simvastatin (Zocor*) 40 MG TABLET 40 MG PO AT BEDTIME CHOLESTEROL (Reported) Valsartan (Diovan) 80 MG TABLET 80 MG PO DAILY HTN (Reported) Zolpidem Tartrate (Ambien) 5 MG TABLET 5 MG PO AT BEDTIME SLEEP (Reported) Current Medications: Current Medications Sig/Jaswant Start time Last Medication Dose Route Stop Time Status Admin Acetaminophen 650 MG Q6P PRN 08/19 0230 AC PO Acetaminophen/ 1 TAB Q6P PRN 08/19 0230 AC Hydrocodone Bitart PO Amlodipine Besylate 5 MG DAILY 08/19 1000 AC 08/19 PO 1000 Aspirin 81 MG DAILY 08/19 1000 AC 08/19 PO 1000 Aspirin 0 .STK-MED ONE 08/180 DC PO Aspirin 325 MG ONCE ONE 08/18 2314 DC 08/18 PO 08/19 2315 231 Atorvastatin Calcium 20 MG 1700 08/19 1700 AC PO Calcium/Vitamin D 1 TAB DAILY 08/19 1000 AC 08/19 PO 1000 Furosemide 40 MG 7:30 AM, & 4:30 PM 08/19 0730 CAN IV Heparin Sodium 0 .STK-MED ONE 08/19 0046 DC (Porcine) .ROUTE Heparin Sodium 5,000 UNIT ONCE ONE 08/19 0030 DC 08/19 (Porcine) IV 08/19 0031 0141 Heparin Sodium 25,000 UNIT Q24H 08/19 0030 AC 08/19 (Porcine) IV 0141 Sodium Chloride 500 ML Metoprolol Succinate 25 MG DAILY 08/19 1000 AC 08/19 PO 1000 Morphine Sulfate 2 MG Q4P PRN 08/19 0230 AC IV Sodium Chloride 1,000 ML Q20H 08/19 1100 AC 08/19 IV 1109 Zolpidem Tartrate 5 MG AT BEDTIME 08/19 2200 AC PO Review of Systems Review of Systems: No fever. No chills. No rash. No tremor. All other systems were reviewed, and were noted to be negative. Past History Travel History Traveled to [place] past 21 day No Medical History Blood Transfusion Hx: No Neurological: NONE EENT: NONE Cardiovascular: hypertension, hyperlipidemia, "BROKEN HEART SYNDROME IN 2006" OR TAKOTSUBO CARDIOMYOPATHY MITRAL VALVE REPLACEMENT Respiratory: ?FLUID ON THE LUNG Gastrointestinal: NONE Hepatic: NONE Renal: NONE Musculoskeletal: gout Psychiatric: NONE Endocrine: NONE Blood Disorders: NONE Cancer(s): NONE MEMBERSHIP COORDINATOR/Reproductive: UTERINE PROLAPSE Surgical History Surgical History: non-contributory Family History Family History Reviewed? Family history was reviewed with the patient, and there were no issues continuing to the current admission. Psychosocial History Where Do You Live? Home Services at Home: None Smoking Status: Never Smoked ETOH Use: denies use Illicit Drug Use: denies illicit drug use Exam & Diagnostic Data Vital Signs and I&O Vital Signs Date Time Temp Pulse Resp B/P B/P Pulse O2 O2 Flow FiO2 Mean Ox Delivery Rate 08/19 1023 Room Air 08/19 1000 79 112/62 08/19 1000 79 112/62 08/19 0800 94 Room Air 08/19 07 97.6 83 20 110/66 94 Room Air 08/19 0315 97.9 102 24 110/60 97 Room Air 08/18 2319 Room Air 08/18 2220 98.1 58 20 129/65 95 Room Air Intake & Output 08/19 1600 08/19 0800 08/19 0000 08/18 0800 08/18 0000 Intake Total Output Total Balance Patient 142 lb 143 lb Weight Weight Bed scale Reported by Patient Measurement Method Physical Exam: Gen: The patient is in no acute distress HEENT: Normal nose, ears, and oropharynx. Pupils equal bilaterally. Conjunctiva normal. Neck: Supple with no JVD, no masses, and no thyromegaly Lungs: Decreased breath sounds and scattered rales in the left base with normal respiratory effort Heart: RRR, S1, S2, 2/6 systolic murmur. 1+ peripheral edema, 1+ pulses in the lower extremities bilaterally Abdomen: Soft, nontender, no masses. No hepatomegaly. No splenomegaly Extremities: No clubbing or cyanosis. Normal muscle strength in the upper and lower extremities Skin: Normal skin turgor with no skin ulcers or lesions noted. Neuro: Cranial nerves intact. Sensation intact Psych: Alert and oriented 3 with appropriate affect Labs/Chaitanya Results: Laboratory Tests 08/19 08/19 08/19 1035 0805 0400 Chemistry Sodium (137 - 145 mmol/L) 141 Potassium (3.5 - 5.1 mmol/L) 4.1 Chloride (98 - 107 mmol/L) 99 Carbon Dioxide (22 - 30 mmol/L) 29 Anion Gap (5 - 16) 13 BUN (7 - 17 mg/dL) 32 H Creatinine (0.5 - 1.0 mg/dL) 1.1 H Estimated GFR (>60 ml/min) 47 L BUN/Creatinine Ratio (7 - 25 %) 29.1 H Troponin I (< 0.11 ng/ml) Pending < 0.01 Coagulation APTT (25 - 37 SEC) 92 H Hematology CBC w Diff NO MAN DIFF REQ WBC (4.8 - 10.8 /CUMM) 6.3 RBC (4.20 - 5.40 /CUMM) 4.47 Hgb (12.0 - 16.0 G/DL) 13.0 Hct (37 - 47 %) 39.8 MCV (81.0 - 99.0 FL) 89.0 MCH (27.0 - 31.0 PG) 29.0 RDW (11.5 - 14.5 %) 14.3 Plt Count (130 - 400 /CUMM) 163 MPV (7.4 - 10.4 FL) 9.3 Gran % (42.2 - 75.2 %) 48.8 Lymphocytes % (20.5 - 51.1 %) 39.3 Monocytes % (1.7 - 9.3 %) 8.7 Eosinophils % (0 - 5 %) 2.5 Basophils % (0.0 - 2.0 %) 0.7 Absolute Granulocytes (1.4 - 6.5 /CUMM) 3.1 Absolute Lymphocytes (1.2 - 3.4 /CUMM) 2.5 Absolute Monocytes (0.10 - 0.60 /CUMM) 0.5 Absolute Eosinophils (0.0 - 0.7 /CUMM) 0.2 Absolute Basophils (0.0 - 0.2 /CUMM) 0 PUBS MCHC (33.0 - 37.0 G/DL) 32.6 L 08/18 08/18 2215 2208 Chemistry Sodium (137 - 145 mmol/L) 139 Potassium (3.5 - 5.1 mmol/L) 4.6 Chloride (98 - 107 mmol/L) 96 L Carbon Dioxide (22 - 30 mmol/L) 29 Anion Gap (5 - 16) 14 BUN (7 - 17 mg/dL) 37 H Creatinine (0.5 - 1.0 mg/dL) 1.3 H Estimated GFR (>60 ml/min) 39 L BUN/Creatinine Ratio (7 - 25 %) 28.5 H Glucose (65 - 99 mg/dL) 108 H Hemoglobin A1c (4.2 - 5.8 %) 5.8 Calcium (8.4 - 10.2 mg/dL) 9.3 Total Bilirubin (0.2 - 1.3 mg/dL) 0.6 Direct Bilirubin (< 0.4 mg/dL) 0.4 AST (14 - 36 U/L) 24 ALT (9 - 52 U/L) 31 Alkaline Phosphatase (<127 U/L) 69 Troponin I (< 0.11 ng/ml) < 0.01 Tun-Z-Ijmiymxoqdi Pept (<125 pg/mL) 3660 H Cancelled Total Protein (6.3 - 8.2 g/dL) 6.7 Albumin (3.5 - 5.0 g/dL) 3.7 Amylase (30 - 110 U/L) 60 Lipase (23 - 300 U/L) 87 TSH (0.270 - 4.200 uIU/mL) 6.840 H Free T4 (0.85 - 1.93 ng/dL) 1.49 Coagulation D-Dimer (70 - 232 ng/ml) 2884 H Hematology CBC w Diff NO MAN DIFF REQ WBC (4.8 - 10.8 /CUMM) 6.4 RBC (4.20 - 5.40 /CUMM) 4.59 Hgb (12.0 - 16.0 G/DL) 13.1 Hct (37 - 47 %) 41.2 MCV (81.0 - 99.0 FL) 89.6 MCH (27.0 - 31.0 PG) 28.6 RDW (11.5 - 14.5 %) 14.6 H Plt Count (130 - 400 /CUMM) 192 MPV (7.4 - 10.4 FL) 9.4 Gran % (42.2 - 75.2 %) 59.3 Lymphocytes % (20.5 - 51.1 %) 29.4 Monocytes % (1.7 - 9.3 %) 9.4 H Eosinophils % (0 - 5 %) 1.5 Basophils % (0.0 - 2.0 %) 0.4 Absolute Granulocytes (1.4 - 6.5 /CUMM) 3.8 Absolute Lymphocytes (1.2 - 3.4 /CUMM) 1.9 Absolute Monocytes (0.10 - 0.60 /CUMM) 0.6 Absolute Eosinophils (0.0 - 0.7 /CUMM) 0.1 Absolute Basophils (0.0 - 0.2 /CUMM) 0 PUBS MCHC (33.0 - 37.0 G/DL) 31.9 L Diagnostic Data EKG Results EKG tracings are independently reviewed. EKG from 08/18 at 2300 reveals atrial fibrillation with ventricular response of 95 EKG from 0300 today showed atrial flutter with ventricular response of 103 EKG from 0700 today reveals sinus rhythm at a rate of 78 with first-degree AV block, and possible septal infarct age undetermined CXR Results Increased moderate left pleural effusion with airspace opacity. Other Results Lower extremity Doppler study: Normal triplex scan without evidence of deep venous thrombosis involving the bilateral lower extremities. Assessment/Plan Assessment/Plan The patient is an 85 red female with history of bioprosthetic mitral valve replacement, takotsubo cardiomyopathy, and hypertension presenting with shortness of breath and lower extremity edema, and to have paroxysmal atrial version and atrial flutter. She is currently in sinus rhythm. She is noted to have a moderate left pleural effusion. recommendations: * Would diurese with Lasix 20 mg IV every 12 hours * Monitor input and output with daily weights * Continue oral metoprolol for rate control, and monitor rhythm * Echo * Check BMP daily * Would continue IV heparin for now, and change to Eliquis or another NOAC prior to discharge * Recommend thoracentesis with drainage of left pleural effusion. Consult Acknowledgment - Thank you for your consult request.
--- NOTE | 2016-08-19 12:23 | NUR ---
Patient c/o shortness of breath while ambulating to the bathroom and an audible wheeze was heard. O2 sat 93% on room air with ambulation. Dr. Domingo notified. Will continue to monitor patient.
--- NOTE | 2016-08-19 14:03 | CT SCAN REPORT ---
EXAMINATION: CT ANGIOGRAM OF THE CHEST WITH AND WITHOUT CONTRAST (CT PULMONARY ANGIOGRAM FOR PE) CLINICAL INFORMATION: Reason for Study:
Presumptive Dx: Pulmonary embolism
Signs Symptoms: SOB, elevated d dimer
COMPARISON: None TECHNIQUE: Prior to contrast administration, noncontrast localization images were obtained. Subsequently, multidetector volumetric imaging was performed from the thoracic inlet to below the diaphragms following the administration of 98 mL Optiray 320 intravenous contrast. No contrast reaction reported. Sagittal, coronal, and MIP oblique sagittal reformatted images were obtained on the CT workstation, uploaded to PACS, and reviewed. Total exam dose-length product 322.13 mGy-cm. FINDINGS: QUALITY OF STUDY/CONTRAST BOLUS: Satisfactory PULMONARY ARTERIES: No central or segmental pulmonary emboli. THORACIC AORTA: Diffuse atherosclerotic disease is noted within the aorta and its branches including significant coronary arterial calcifications. The ascending thoracic aorta at the level of the main pulmonary artery measures approximately 3.8 cm at its maximum dimension. LUNG: Partial collapse consolidation involving left lower lobe of the lung with the presence of air bronchogram is noted. The left upper lobe, the entire right lung field appear well-aerated and are clear. PLEURA/PERICARDIUM: Small left-sided pleural effusion is noted. Trace amount of pericardial effusion is also noted. MEDIASTINUM: No pathologically enlarged mediastinal, hilar lymphadenopathy present. There is cardiomegaly present with enlargement of all 4 cardiac chambers. No evidence of septal bowing or right heart strain. Aortic valve replacement is noted. CHEST WALL/AXILLA: No axillary or internal mammary lymphadenopathy. OSSEOUS STRUCTURES: No acute or suspicious osseous abnormality. UPPER ABDOMEN: Unremarkable. No reflux of contrast into the hepatic veins to suggest elevated right heart pressures. IMPRESSION: 1. No CT evidence of pulmonary embolism is present. 2. Partial collapse consolidation involving left lower lobe of the lung and small left-sided pleural effusion are present, of uncertain etiology. 3. Trace amount of pericardial effusion is also noted. 4. Diffuse atherosclerotic disease involving the aorta and is branches including coronary artery calcifications, moderate enlargement of the all 4 cardiac chambers, and postsurgical changes of aortic valve replacement are noted. VTE: negative
[2016-08-19 16:00] VITALS: BP 102/52
[2016-08-19 16:08] LABS: PTT 69 SEC (25-37)
--- NOTE | 2016-08-19 20:37 | ECHOCARDIOGRAM REPORT ---
ANANDA CALHOUN Age: 85 : 1930 Gender: F Exam Date: 08/19/2016 15:10 Exam Location: [facility] Ht (in): 58 Wt (lb): 143 BSA: 1.66 BP: 110 / 60 Ordering Physician: NICOLE DURHAM MD Referring Physician: Prema Haskins MD Technologist: Blaire Lo PASCUAL Room Number: 103 Indications: AFIB/FLUTTER Rhythm: Sinus Technical Quality: Fair FINDINGS Left Ventricle Normal size left ventricle. Abnormal septal motion. Normal left ventricular ejection fraction estimated at 55-60%. Right Ventricle Right ventricle at upper limits of normal. Right Atrium Normal right atrial size. Left Atrium Mild to moderate left atrial dilatation. Mitral Valve Normally functioning prosthetic mitral valve. Bioprosthetic mitral valve. Mild prosthetic mitral valve regurgitation. Aortic Valve Trileaflet aortic valve. Diffuse thickening (sclerosis) of the aortic valve cusps without reduced excursion. No aortic stenosis. Mild aortic regurgitation. Tricuspid Valve Tricuspid valve not well visualized, grossly normal. Mild-to- moderate tricuspid regurgitation. Right ventricular systolic pressure estimated at 40 mmHg. Pulmonic Valve Pulmonic valve not well visualized, grossly normal. Mild pulmonic regurgitation. Pericardium No pericardial effusion. Left pleural effusion. Great Vessels Mildly dilated proximal ascending aorta (tube). CONCLUSIONS 1. Mild to moderate aortic sclerosis is present with mild aortic insufficiency. 2. A normally functioning bioprosthetic mitral valve is present with mild mitral insufficiency and mild to moderate left atrial enlargement. 3. A very small pericardial effusion is present. 4. A left pleural effusion is present 5. The left ventricular chamber size is normal with a normal ejection fraction. Abnormal septal motion is present. 6. Mild to moderate tricuspid insufficiency is present with mild pulmonic insufficiency and an estimated RV systolic pressure of 40 mmHg. 7. Minimal dilatation of the ascending aorta is noted. Prema Haskins M.D. (Electronically Signed) Final Date: 19 August 2016 20:37 MEASUREMENTS (Male / Female) Normal Values 2D ECHO LV Diastolic Diameter PLAX 4.4 cm 4.2 - 5.9 / 3.9 - 5.3 cm LV Systolic Diameter PLAX 2.1 cm 2.1 - 4.0 cm LV Fractional Shortening PLAX 52.3 % 25 - 46 % LV Ejection Fraction 2D Teich 83.6 % IVS Diastolic Thickness 1.0 cm LVPW Diastolic Thickness 1.1 cm LV Relative Wall Thickness 0.5 RV Internal Dim ED PLAX 2.4 cm 1.9 - 3.8 cm LVOT Diameter 1.8 cm Aortic Root Diameter 2.5 cm LA Systolic Diameter LX 4.6 cm 3.0 - 4.0 / 2.7 - 3.8 cm LA Volume 31.0 cm 18 - 58 / 22 - 52 cm Ascending Aorta Diameter 3.8 cm DOPPLER AV Peak Velocity 153.0 cm/s AV Peak Gradient 9.4 mmHg AV Mean Velocity 109.0 cm/s AV Mean Gradient 5.0 mmHg AV Velocity Time Integral 31.3 cm LVOT Peak Velocity 91.2 cm/s LVOT Peak Gradient 3.3 mmHg LVOT Mean Velocity 67.7 cm/s LVOT Mean Gradient 2.0 mmHg LVOT Velocity Time Integral 21.9 cm LVOT Stroke Volume 55.7 cm AV Area Cont Eq vti 1.8 cm AV Area Cont Eq pk 1.5 cm MV Peak Velocity 193.0 cm/s MV Peak Gradient 14.9 mmHg MV Mean Velocity 112.0 cm/s MV Mean Gradient 5.5 mmHg Mitral E Point Velocity 186.0 cm/s Mitral A Point Velocity 135.0 cm/s Mitral E to A Ratio 1.4 MV PHT Velocity 197.5 cm/s MV Deceleration [place] 814.5 cm/s MV Pressure Half Time 72.7 ms MV Area PHT 3.0 cm MV Deceleration Time 211.0 ms TR Peak Velocity 293.0 cm/s TR Peak Gradient 34.3 mmHg Right Atrial Pressure 5.0 mmHg Pulmonary Artery Systolic Pressu 39.3 mmHg Right Ventricular Systolic Press 39.3 mmHg PV Peak Velocity 125.0 cm/s PV Peak Gradient 6.3 mmHg PV Mean Velocity 73.1 cm/s PV Mean Gradient 3.0 mmHg PV Velocity Time Integral 24.0 cm LV E' Lateral Velocity 6.2 cm/s Mitral E to LV E' Lateral Ratio 29.8 LV E' Septal Velocity 5.4 cm/s Mitral E to LV E' Septal Ratio 34.7
[2016-08-19 21:41] VITALS: BP 126/60
[2016-08-19 23:58] VITALS: BP 110/62
[2016-08-20 04:37] LABS: ABSOLUTE BASOPHIL COUNT 0 /CUMM (0.0-0.2); ABSOLUTE EOSINOPHIL COUNT 0.2 /CUMM (0.0-0.7); ABSOLUTE GRANULOCYTE CT 2.8 /CUMM (1.4-6.5); ABSOLUTE LYMPH COUNT 2.6 /CUMM (1.2-3.4); ABSOLUTE MONOCYTE COUNT 0.5 /CUMM (0.10-0.60); BASOPHIL % 0.6 % (0.0-2.0); EOSINOPHIL % 2.7 % (0-5); GRANULOCYTE % 45.6 % (42.2-75.2); HEMATOCRIT 41.6 % (37-47); MEAN CORPUSCULAR HGB 28.6 PG (27.0-31.0); MEAN CORPUSCULAR HGB CONC 31.9 G/DL (33.0-37.0); MEAN CORPUSCULAR VOLUME 89.6 FL (81.0-99.0); MEAN PLATELET VOLUME 9.4 FL (7.4-10.4); PLATELET COUNT 194 /CUMM (130-400); RBC DISTRIBUTION WIDTH 14.4 % (11.5-14.5); RED BLOOD CELL CT 4.64 /CUMM (4.20-5.40); WHITE BLOOD CELL COUNT 6.1 /CUMM (4.8-10.8)
[2016-08-20 04:45] LABS: PTT 59 SEC (25-37)
--- NOTE | 2016-08-20 07:31 | Event Note ---
Event Note Event Note: Called her son [phone]) at 7:30 am to let him know that the pt is transferred to telemetry overnight, there was no answer.
--- NOTE | 2016-08-20 07:31 | PN- Housestaff ---
ARSH ESTRADA,[facility] [place]/16 0730: Subjective Follow-up For: Acute decompensated CHF Left-sided pleural effusion Paroxysmal atrial fibrillation and atrial flutter Tele-Events Since Last Visit: Sinus rhythm HR 70-95 First degree AV block, IL interval 0.24 Subjective: No acute events overnight. Patient seen and examined this morning. Shortness of breath has improved but she is not completely back to baseline. She reports that her arm continues to feel tender. She denies chest pain. Review of Systems Constitutional: Reports: see HPI. Objective Last 24 Hrs of Vital Signs/I&O Vital Signs Date Time Temp Pulse Resp B/P B/P Pulse O2 O2 Flow FiO2 Mean Ox Delivery Rate 08/20 1530 98.1 85 18 124/68 94 Room Air 08/20 0835 130/60 08/20 0835 130/60 08/20 0800 98.3 86 20 130/60 95 Room Air 08/19 2358 98.6 78 20 110/62 92 Room Air 08/19 2141 98.7 76 20 126/60 94 Room Air Intake & Output 08/20 1600 08/20 0800 08/20 0000 Intake Total 1000 688.2 685.6 Output Total 850 Balance 150 688.2 685.6 Intake, IV 600 568.2 565.6 Intake, Oral 400 120 120 Output, Urine 850 Patient 64.467 kg Weight Weight Chair scale Measurement Method Physical Exam General Appearance: Alert, Oriented X3, No Acute Distress HEENT: Atraumatic, Mucous Membr. moist/pink Neck: Supple Cardiovascular: Regular Rate, Normal S1, Normal S2 Lungs: Diminished Breath Sounds at Left Lung Base Abdomen: Soft, No Tenderness, Positive Bowel Sounds Extremities: No Clubbing, No Cyanosis, No Edema Current Medications: Current Medications Sig/Jaswant Start time Last Medication Dose Route Stop Time Status Admin Acetaminophen 650 MG Q6P PRN 08/19 0230 AC PO Acetaminophen/ 1 TAB Q6P PRN 08/19 0230 AC Hydrocodone Bitart PO Amlodipine Besylate 5 MG DAILY 08/19 1000 AC 08/20 PO 0835 Aspirin 81 MG DAILY 08/19 1000 AC 08/20 PO 0834 Atorvastatin Calcium 20 MG 1700 08/19 1700 AC 08/20 PO 1621 Calcium/Vitamin D 1 TAB DAILY 08/19 1000 AC 08/20 PO 0834 Furosemide 20 MG 7:30 AM, & 4:30 PM 08/20 0730 AC 08/20 IV 1621 Heparin Sodium 25,000 UNIT Q24H 08/20 0915 AC (Porcine) IV Sodium Chloride 500 ML Heparin Sodium 25,000 UNIT Q24H 08/19 0030 DC 08/20 (Porcine) IV 08/20 0900 0056 Sodium Chloride 500 ML Metoprolol Succinate 25 MG DAILY 08/19 1000 AC 08/20 PO 0835 Morphine Sulfate 2 MG Q4P PRN 08/19 0230 AC IV Multivitamins 1 TAB DAILY 08/19 1436 AC 08/20 PO 0836 Patient Medication 1 ED .STK-MED ONE 08/20 1351 [place] [facility] 08/20 1352 Sodium Chloride 1,000 ML Q20H 08/19 1100 DC 08/20 IV 0615 Zolpidem Tartrate 5 MG AT BEDTIME 08/19 2200 AC 08/19 PO 2133 Last 24 Hrs of Lab/Chaitanya Results Last 24 Hrs of Labs/Mics: Laboratory Tests 08/20/16 1220: APTT 65 H 08/20/16 0400: Sodium Cancelled, Potassium Cancelled, Chloride Cancelled, Carbon Dioxide Cancelled, Anion Gap Cancelled, BUN Cancelled, Creatinine Cancelled, BUN/ Creatinine Ratio Cancelled 08/20/16 0345: Anion Gap 12, Estimated GFR 53 L, BUN/Creatinine Ratio 31.0 H, Magnesium 2.0, PT 12.0, INR 1.14, APTT 59 H, CBC w Diff NO MAN DIFF REQ, RBC 4.64, MCV 89.6, MCH 28.6, RDW 14.4, MPV 9.4, Gran % 45.6, Lymphocytes % 42.9, Monocytes % 8.2, Eosinophils % 2.7, Basophils % 0.6, Absolute Granulocytes 2.8, Absolute Lymphocytes 2.6, Absolute Monocytes 0.5, Absolute Eosinophils 0.2, Absolute Basophils 0, PUBS MCHC 31.9 L 08/20/16 0300: APTT Cancelled Microbiology 08/20 1300 BODY FLUID: Body Fluid Culture - COLB 08/20 1300 BODY FLUID: Gram Stain - COLB Orders Miscellaneous Findings: Chest US (08/20/16): Small left pleural effusion with inadequate volume for safe ultrasound-guided thoracentesis. Assessment/Plan Assessment: 85 y/o F with PMHx of bioprosthetic mitral valve replacement, takotsubo cardiomyopathy and HTN who presents with SOB and bilateral lower extremity swelling, found to have paroxysmal atrial fibrillation and flutter. #Shortness of breath: Likely secondary to acute on chronic HFpEF. ECHO with normally functioning bioprosthetic mitral valve and normal LVEF, mild-to- moderate aortic sclerosis and elevated RV systolic pressure of 40 mmHg. * Cardiology following. Appreciate their recs. * Monitor I/Os and daily weights. * Monitor lytes and kidney function. * Continue Lasix 20 mg IV BID. #Left pleural effusion: Likely secondary to acute decompensated heart failure, with concurrent small pericardial effusion. Thoracentesis could not be performed as left pleural effusion was felt to be too small for safe thoracentesis on diagnostic ultrasound. * Pulmonology following. Appreciate their recs. * Patient encouraged to use incentive spirometry at least 10x daily. * Repeat CXR within one week to ensure stability of effusion. #Paroxysmal atrial fibrillation and atrial flutter: Currently in sinus rhythm. * Continue telemetry monitoring. * Continue IV heparin until tomorrow morning. * Start Eliquis in the AM. * Continue metoprolol-XL 25 mg PO daily. Diet: Heart Healthy with 2 g Na restriction DVT PPx: IV Heparin and ALPs CODE: DNR/DNI Problem List: 1. Pleural effusion, left 2. Paroxysmal atrial fibrillation 3. (HFpEF) heart failure with preserved ejection fraction 4. Acute exacerbation of congestive heart failure 5. Atrial flutter Pain Ratin Pain Location: N/A Pain Goal: Remain pain free Pain Plan: Morphine 2 mg IV Q4H PRN for severe pain (scale 7-10) Vicodin 1 tab PO Q6H PRN for moderate pain (scale 4-6) Tylenol 650 mg PO Q6H PRN for mild pain (scale 1-3) Tomorrow's Labs & Rationales: BMP to monitor lytes and kidney function in the setting of diuresis LORA LEOS MD 08/20/16 1156: Attending MD Review Statement Attending Statement Attending MD Statement: examined this patient, discuss w/resident/PA/FLAT CLOTHIER, agreed w/resident/PA/FLAT CLOTHIER, reviewed EMR data (avail) Attending Assessment/Plan: 85F PMH HTN, HLD, Takotsubo cardiomyopathy, bioprosthetic mitral valve replacement admitted with left shoulder and arm pain progressive shortness of breath over the past few weeks with new onset atrial fibrillation, moderate left sided pleural effusion. Patient feels better today after IV diuresis. No chest pain or palpitations. Vitals stable. Labs show markedly elevated d-dimer, CTA negative for PE. Creatinine stable. 1. Shortness of breath 2. Moderate left pleural effusion 3. New onset atrial fibrillation 4. Elevated d-dimer 5. [place] 6. History of MVR 7. History of Takotsubo cardiomyopathy Plan - Continue on telemetry - Unable to obtain thoracentesis due to low volume effusion - Pulmonary consult - Follow cardiology recommendations - Monitor renal function - May start Eliquis tomorrow morning, continue heparin for now - Continue Metprolol for rate control - Continue home medications
[2016-08-20 08:00] VITALS: BP 130/60
--- NOTE | 2016-08-20 10:12 | ULTRASOUND REPORT ---
EXAMINATION: US PLEURAL EFFUSION CLINICAL INFORMATION: Pleural effusion. Evaluate for volume for possible thoracentesis. COMPARISON: CTA chest 08/19/2016 TECHNIQUE: Curved ultrasound interrogation of the chest was performed. FINDINGS: No right pleural effusion. Small left pleural effusion. IMPRESSION: Small left pleural effusion with inadequate volume for safe ultrasound-guided thoracentesis.
--- NOTE | 2016-08-20 10:25 | PN- Cardiology ---
Subjective Subjective: The patient reports that her shortness of breath is improving, but is not yet back to normal. No chest pain. No palpitations. No lightheadedness or dizziness. No nausea or vomiting. No diaphoresis. Objective Vital Signs and I&Os Vital Signs Date Time Temp Pulse Resp B/P B/P Pulse O2 O2 Flow FiO2 Mean Ox Delivery Rate 08/20 0835 130/60 08/20 0835 130/60 08/20 0800 98.3 86 20 130/60 95 Room Air 08/19 2358 98.6 78 20 110/62 92 Room Air 08/19 2141 98.7 76 20 126/60 94 Room Air 08/19 1600 97.9 82 18 102/52 94 Room Air 08/19 1600 94 Room Air 08/19 1023 Room Air Intake & Output 08/20 1600 08/20 0800 08/20 0000 08/19 1600 08/19 0800 08/19 0000 Intake Total 688.2 685.6 Output Total Balance 688.2 685.6 Intake, IV 568.2 565.6 Intake, Oral 120 120 Number 1 Bowel Movements Patient 142 lb 142 lb 143 lb Weight Weight Chair scale Bed scale Reported by Patient Measurement Method Physical Exam: Gen: The patient is in no acute distress HEENT: Normal nose, ears, and oropharynx. Pupils equal bilaterally. Conjunctiva normal. Neck: Supple with no JVD, no masses, and no thyromegaly Lungs: Decreased breath sounds and scattered rales in the left base with normal respiratory effort Heart: RRR, S1, S2, 2/6 systolic murmur. 1+ peripheral edema, 1+ pulses in the lower extremities bilaterally Abdomen: Soft, nontender, no masses. No hepatomegaly. No splenomegaly Extremities: No clubbing or cyanosis. Normal muscle strength in the upper and lower extremities Skin: Normal skin turgor with no skin ulcers or lesions noted. Neuro: Cranial nerves intact. Sensation intact Current Medications: Current Medications Sig/Jaswant Start time Last Medication Dose Route Stop Time Status Admin Acetaminophen 650 MG Q6P PRN 08/19 0230 AC PO Acetaminophen/ 1 TAB Q6P PRN 08/19 0230 AC Hydrocodone Bitart PO Amlodipine Besylate 5 MG DAILY 08/19 1000 AC 08/20 PO 0835 Aspirin 81 MG DAILY 08/19 1000 AC 08/20 PO 0834 Atorvastatin Calcium 20 MG 1700 08/19 1700 AC 08/19 PO 1659 Calcium/Vitamin D 1 TAB DAILY 08/19 1000 AC 08/20 PO 0834 Furosemide 20 MG 7:30 AM, & 4:30 PM 08/20 0730 AC 08/20 IV 0834 Furosemide 20 MG ONCE ONE 08/19 1430 DC 08/19 IV 08/19 1431 1457 Furosemide 20 MG 0800 & 1700 08/19 1230 DC IV Heparin Sodium 25,000 UNIT Q24H 08/20 0915 AC (Porcine) IV Sodium Chloride 500 ML Heparin Sodium 25,000 UNIT Q24H 08/19 0030 DC 08/20 (Porcine) IV 08/20 0900 0056 Sodium Chloride 500 ML Metoprolol Succinate 25 MG DAILY 08/19 1000 AC 08/20 PO 0835 Morphine Sulfate 2 MG Q4P PRN 08/19 0230 AC IV Multivitamins 1 TAB DAILY 08/19 1436 08/20 PO 0836 Sodium Chloride 1,000 ML Q20H 08/19 1100 AC 08/20 IV 0615 Zolpidem Tartrate 5 MG AT BEDTIME 08/19 2200 08/19 PO 2133 Results Last 48 Hrs of Labs/Mics: Laboratory Tests 08/20/16 0400: Sodium Cancelled, Potassium Cancelled, Chloride Cancelled, Carbon Dioxide Cancelled, Anion Gap Cancelled, BUN Cancelled, Creatinine Cancelled, BUN/ Creatinine Ratio Cancelled 08/20/16 0345: Anion Gap 12, Estimated GFR 53 L, BUN/Creatinine Ratio 31.0 H, Magnesium 2.0, PT 12.0, INR 1.14, APTT 59 H, CBC w Diff NO MAN DIFF REQ, RBC 4.64, MCV 89.6, MCH 28.6, RDW 14.4, MPV 9.4, Gran % 45.6, Lymphocytes % 42.9, Monocytes % 8.2, Eosinophils % 2.7, Basophils % 0.6, Absolute Granulocytes 2.8, Absolute Lymphocytes 2.6, Absolute Monocytes 0.5, Absolute Eosinophils 0.2, Absolute Basophils 0, PUBS MCHC 31.9 L 08/20/16 0300: APTT Cancelled 08/19/16 1500: APTT 69 H 08/19/16 1035: Troponin I < 0.01 08/19/16 0805: APTT 92 H 08/19/16 0400: Anion Gap 13, Estimated GFR 47 L, BUN/Creatinine Ratio 29.1 H, Troponin I < 0.01, CBC w Diff NO MAN DIFF REQ, RBC 4.47, MCV 89.0, MCH 29.0, RDW 14.3, MPV 9.3, Gran % 48.8, Lymphocytes % 39.3, Monocytes % 8.7, Eosinophils % 2.5, Basophils % 0.7, Absolute Granulocytes 3.1, Absolute Lymphocytes 2.5, Absolute Monocytes 0.5, Absolute Eosinophils 0.2, Absolute Basophils 0, PUBS MCHC 32.6 L 08/18/16 2215: Anion Gap 14, Estimated GFR 39 L, BUN/Creatinine Ratio 28.5 H, Glucose 108 H, Hemoglobin A1c 5.8, Calcium 9.3, Total Bilirubin 0.6, Direct Bilirubin 0.4, AST 24, ALT 31, Alkaline Phosphatase 69, Troponin I < 0.01, [id number] Pept 3660 H, Total Protein 6.7, Albumin 3.7, Amylase 60, Lipase 87, TSH 6.840 H, Free T4 1.49, D-Dimer 2884 H, CBC w Diff NO MAN DIFF REQ, RBC 4.59, MCV 89.6, MCH 28.6, RDW 14.6 H, MPV 9.4, Gran % 59.3, Lymphocytes % 29.4, Monocytes % 9.4 H, Eosinophils % 1.5, Basophils % 0.4, Absolute Granulocytes 3.8, Absolute Lymphocytes 1.9, Absolute Monocytes 0.6, Absolute Eosinophils 0.1, Absolute Basophils 0, PUBS MCHC 31.9 L 08/18/162207: [id number] Pept Cancelled Microbiology 08/190 UPPER RESP: Surveillance Culture - COMP Recent Imaging Studies: CTA chest: 1. No CT evidence of pulmonary embolism is present. 2. Partial collapse consolidation involving left lower lobe of the lung and small left-sided pleural effusion are present, of uncertain etiology. 3. Trace amount of pericardial effusion is also noted. 4. Diffuse atherosclerotic disease involving the aorta and is branches including coronary artery calcifications, moderate enlargement of the all 4 cardiac chambers, and postsurgical changes of aortic valve replacement are noted. Ultrasound of the chest: Small left pleural effusion with inadequate volume for safe ultrasound-guided thoracentesis. Assessment/Plan Assessment/Plan Assessment: 1. Bioprosthetic mitral valve 2. Hypertension 3. Paroxysmal atrial fibrillation and atrial flutter, currently in sinus rhythm 4. Left pleural effusion, not large enough on ultrasound for thoracentesis 5. Possible acute HFpEF exacerbation Plan: * Continue IV Lasix * Monitor input and output * Check basic metabolic profile in the morning * Continue other cardiac medications Continue telemetry? Yes
--- NOTE | 2016-08-20 11:18 | Cons- Pulmonary ---
General Information and HPI Consulting Request Date of Consult: 08/20/16 Requested By: Dr. Sanabria Reason for Consult: dyspnea, atelectasis, left pleural effusion Source of Information: patient Exam Limitations: no limitations History of Present Illness: Consultation request for atelectasis and a small left-sided pleural effusion setting of congestive heart failure. Patient is an 85-year-old woman. She has a history of bioprosthetic mitral valve replacement, high blood pressure, hypertension and lipidemia. 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 She presented yesterday with dyspnea on exertion primarily and lower extremity edema. She has been on Lasix with minimal improvement. She denies any nausea vomiting diarrhea or constipation. She has no recent travel history or sick contacts. She is afebrile. She does complain of a dry cough and her shortness of breath has improved since being admitted to the hospital. During the workup here she has undergone blood work testing which was unrevealing and she had a chest CT performed showing no evidence of DVT however a left lower lobe partial collapse with a very small left-sided pleural effusion was noted. On chest ultrasound there is not enough fluid amenable for a thoracentesis. Of note there is a trace amount of pericardial effusion noted. Allergies/Medications Allergies: Coded Allergies: shellfish derived (GOUT FLARE UP 08/18/16) Home Med List: Allopurinol 300 MG TABLET 300 MG PO DAILY GOUT (Reported) Amlodipine Besylate 5 MG TABLET 1 TAB PO DAILY HTN (Reported) Aspirin (Aspirin*) 81 MG TAB.CHEW 81 MG PO DAILY HEART (Reported) Calcium Carbonate/Vitamin D3 (Caltrate 600 + D Tablet) 600 MG-800 TABLET 600 MG PO DAILY VITAMIN (Reported) Furosemide 20 MG TABLET 20 MG PO DAILY HEART (Reported) Metoprolol Succ XL (Toprol XL) 25 MG TAB 25 MG PO DAILY HEART (Reported) Simvastatin (Zocor*) 40 MG TABLET 40 MG PO AT BEDTIME CHOLESTEROL (Reported) Valsartan (Diovan) 80 MG TABLET 80 MG PO DAILY HTN (Reported) Zolpidem Tartrate (Ambien) 5 MG TABLET 5 MG PO AT BEDTIME SLEEP (Reported) Current Medications: Current Medications Sig/Jaswant Start time Last Medication Dose Route Stop Time Status Admin Acetaminophen 650 MG Q6P PRN 08/19 0230 AC PO Acetaminophen/ 1 TAB Q6P PRN 08/19 0230 AC Hydrocodone Bitart PO Amlodipine Besylate 5 MG DAILY 08/19 1000 AC 08/20 PO 0835 Aspirin 81 MG DAILY 08/19 1000 AC 08/20 PO 0834 Atorvastatin Calcium 20 MG 1700 08/19 1700 AC 08/19 PO 1659 Calcium/Vitamin D 1 TAB DAILY 08/19 1000 AC 08/20 PO 0834 Furosemide 20 MG 7:30 AM, & 4:30 PM 08/20 0730 AC 08/20 IV 0834 Furosemide 20 MG ONCE ONE 08/19 1430 DC 08/19 IV 08/19 1431 1457 Furosemide 20 MG 0800 & 1700 08/19 1230 DC IV Heparin Sodium 25,000 UNIT Q24H 08/20 0915 AC (Porcine) IV Sodium Chloride 500 ML Heparin Sodium 25,000 UNIT Q24H 08/19 0030 DC 08/20 (Porcine) IV 08/20 0900 0056 Sodium Chloride 500 ML Metoprolol Succinate 25 MG DAILY 08/19 1000 AC 08/20 PO 0835 Morphine Sulfate 2 MG Q4P PRN 08/19 0230 AC IV Multivitamins 1 TAB DAILY 08/19 1436 AC 08/20 PO 0836 Sodium Chloride 1,000 ML Q20H 08/19 1100 AC 08/20 IV 0615 Zolpidem Tartrate 5 MG AT BEDTIME 08/19 2200 AC 08/19 PO 2133 Review of Systems Comments 18 point review of systems performed. Pertinent positive and negative findings are in the HPI, otherwise negative. 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 Home Services at Home: None Smoking Status: Never Smoked ETOH Use: denies use Illicit Drug Use: denies illicit drug use Exam & Diagnostic Data Last 24 Hrs of Vital Signs/I&O Vital Signs Date Time Temp Pulse Resp B/P B/P Pulse O2 O2 Flow FiO2 Mean Ox Delivery Rate 08/20 0835 130/60 08/20 0835 130/60 08/20 0800 98.3 86 20 130/60 95 Room Air 08/19 2358 98.6 78 20 110/62 92 Room Air 08/19 2141 98.7 76 20 126/60 94 Room Air 08/19 1600 97.9 82 18 102/52 94 Room Air 08/19 1600 94 Room Air Intake & Output 08/20 1600 08/20 0800 08/20 0000 Intake Total 688.2 685.6 Output Total Balance 688.2 685.6 Intake, IV 568.2 565.6 Intake, Oral 120 120 Patient 142 lb Weight Weight Chair scale Measurement Method Physical Exam Other Physical Findings: Gen - alert and awake HEENT - NCAT CVS - S1, S2, systolic murmur Lungs - mildly diminished breath sounds at the left base otherwise clear Abdomen - soft, non-tender, bs+ Ext - no edema, no cyanosis Last 48 Hrs of Labs/Chaitanya: Laboratory Tests 08/20/16 0400: Sodium Cancelled, Potassium Cancelled, Chloride Cancelled, Carbon Dioxide Cancelled, Anion Gap Cancelled, BUN Cancelled, Creatinine Cancelled, BUN/ Creatinine Ratio Cancelled 08/20/16 0345: Anion Gap 12, Estimated GFR 53 L, BUN/Creatinine Ratio 31.0 H, Magnesium 2.0, PT 12.0, INR 1.14, APTT 59 H, CBC w Diff NO MAN DIFF REQ, RBC 4.64, MCV 89.6, MCH 28.6, RDW 14.4, MPV 9.4, Gran % 45.6, Lymphocytes % 42.9, Monocytes % 8.2, Eosinophils % 2.7, Basophils % 0.6, Absolute Granulocytes 2.8, Absolute Lymphocytes 2.6, Absolute Monocytes 0.5, Absolute Eosinophils 0.2, Absolute Basophils 0, PUBS MCHC 31.9 L 08/20/16 0300: APTT Cancelled 08/19/16 1500: APTT 69 H 08/19/16 1035: Troponin I < 0.01 08/19/16 0805: APTT 92 H 08/19/16 0400: Anion Gap 13, Estimated GFR 47 L, BUN/Creatinine Ratio 29.1 H, Troponin I < 0.01, CBC w Diff NO MAN DIFF REQ, RBC 4.47, MCV 89.0, MCH 29.0, RDW 14.3, MPV 9.3, Gran % 48.8, Lymphocytes % 39.3, Monocytes % 8.7, Eosinophils % 2.5, Basophils % 0.7, Absolute Granulocytes 3.1, Absolute Lymphocytes 2.5, Absolute Monocytes 0.5, Absolute Eosinophils 0.2, Absolute Basophils 0, PUBS MCHC 32.6 L 08/18/16 2215: Anion Gap 14, Estimated GFR 39 L, BUN/Creatinine Ratio 28.5 H, Glucose 108 H, Hemoglobin A1c 5.8, Calcium 9.3, Total Bilirubin 0.6, Direct Bilirubin 0.4, AST 24, ALT 31, Alkaline Phosphatase 69, Troponin I < 0.01, [id number]-Blkvuvbqcvg Pept 3660 H, Total Protein 6.7, Albumin 3.7, Amylase 60, Lipase 87, TSH 6.840 H, Free T4 1.49, D-Dimer 2884 H, CBC w Diff NO MAN DIFF REQ, RBC 4.59, MCV 89.6, MCH 28.6, RDW 14.6 H, MPV 9.4, Gran % 59.3, Lymphocytes % 29.4, Monocytes % 9.4 H, Eosinophils % 1.5, Basophils % 0.4, Absolute Granulocytes 3.8, Absolute Lymphocytes 1.9, Absolute Monocytes 0.6, Absolute Eosinophils 0.1, Absolute Basophils 0, PUBS MCHC 31.9 L 08/18/168: [id number]-Saktatpucfj Pept Cancelled Microbiology 08/19 0400 UPPER RESP: Surveillance Culture - COMP Assessment/Plan Impression/Plan: Impression 85-year-old woman * Acute congestive heart failure with a preserved ejection fraction, bioprosthetic valve * Paroxysmal atrial fibrillation and a flutter * Left-sided pleural effusion that is small nature and not enough for thoracentesis with a trace pericardial effusion Plan - incentive spirometry at least 10 times daily - full instruction and guidance provided on IST for the patient - would repeat CXR within a week to ensure stability of effusion - etiology is most likely heart failure related given a small pericardial effusion as well - f/u cardiology recommendations, ins/outs, diuresis, bmp monitoring - DVT prophylaxis at all times (on a/c) Consult Acknowledgment - Thank you for your consult request.
[2016-08-20 13:19] LABS: PTT 65 SEC (25-37)
[2016-08-20 15:30] VITALS: BP 124/68
[2016-08-20 23:41] VITALS: BP 124/80
[2016-08-21 00:34] LABS: PTT 87 SEC (25-37)
--- NOTE | 2016-08-21 07:16 | PN- Housestaff ---
ARSH ESTRADA,[facility] [place] 08/21/16 0716: Subjective Follow-up For: Acute decompensated CHF Left-sided pleural effusion Paroxysmal atrial fibrillation and atrial flutter Tele-Events Since Last Visit: Sinus rhythm First degree AV block PVCs HR 70-78 Subjective: No acute events overnight. Patient seen and examined this morning. She feels improved and back to her baseline. Shortness of breath has resolved. She has no complaints and she would like to be discharged home. Review of Systems Constitutional: Reports: no symptoms. Objective Last 24 Hrs of Vital Signs/I&O Vital Signs Date Time Temp Pulse Resp B/P B/P Pulse O2 O2 Flow FiO2 Mean Ox Delivery Rate 08/21 1018 89 124/74 08/21 1018 89 124/74 08/21 0902 98.2 89 15 124/74 97 Room Air 08/20 2341 98.8 74 20 124/80 94 Room Air Intake & Output 08/21 1600 08/21 0800 08/21 0000 Intake Total 784 Output Total 2 Balance 782 Intake, IV 184 Intake, Oral 600 Output, Other 2 Patient 63.957 kg Weight Weight Standing Scale Measurement Method Physical Exam General Appearance: Alert, Oriented X3, No Acute Distress HEENT: Atraumatic, Mucous Membr. moist/pink Neck: Supple Cardiovascular: Regular Rate, Normal S1, Normal S2 Lungs: Diminished Breath Sounds at Left Lung Base Abdomen: Soft, No Tenderness, Positive Bowel Sounds Extremities: No Clubbing, No Cyanosis, No Edema Current Medications: Current Medications Sig/Jaswant Start time Last Medication Dose Route Stop Time Status Admin Acetaminophen 650 MG Q6P PRN 08/19 0230 DCD PO Acetaminophen/ 1 TAB Q6P PRN 08/19 0230 DCD Hydrocodone Bitart PO Amlodipine Besylate 5 MG DAILY 08/19 1000 DCD 08/21 PO 1018 Apixaban 2.5 MG BID 08/21 1000 DCD 08/21 PO 1018 Aspirin 81 MG DAILY 08/19 1000 DCD 08/21 PO 1017 Atorvastatin Calcium 20 MG 1700 08/19 1700 DCD 08/20 PO 1621 Calcium/Vitamin D 1 TAB DAILY 08/19 1000 DCD 08/21 PO 1018 Furosemide 20 MG 7:30 AM, & 4:30 PM 08/20 0730 DC 08/21 IV 0817 Guaifenesin 10 ML Q6P PRN 08/21 0815 DCD 08/21 PO 1258 Heparin Sodium 25,000 UNIT Q24H 08/20 0915 DC (Porcine) IV Sodium Chloride 500 ML Metoprolol Succinate 25 MG DAILY 08/19 1000 DCD 08/21 PO 1018 Morphine Sulfate 2 MG Q4P PRN 08/19 0230 DCD IV Multivitamins 1 TAB DAILY 08/19 1436 DCD 08/21 PO 1018 Zolpidem Tartrate 5 MG AT BEDTIME 08/19 2200 DCD 08/20 PO 2113 Last 24 Hrs of Lab/Chaitanya Results Last 24 Hrs of Labs/Mics: Laboratory Tests 08/21/16 0650: Anion Gap 12, Estimated GFR 43 L, BUN/Creatinine Ratio 25.0 08/20/16 2350: APTT 87 H Assessment/Plan Assessment: 85 y/o F with PMHx of bioprosthetic mitral valve replacement, takotsubo cardiomyopathy and HTN who presents with SOB and bilateral lower extremity swelling 2/2 acute on chronic HFpEF, found to have paroxysmal atrial fibrillation and flutter. #Acute on chronic HFpEF: Shortness of breath has resolved. ECHO with normally functioning bioprosthetic mitral valve and normal LVEF, [id number] aortic sclerosis and elevated RV systolic pressure of 40 mmHg. * Discharge home today with instructions to follow up with cardiology within one week of discharge. * Continue Lasix 20 mg PO daily on discharge until appointment with Dr. Haskins, at which point dose can be adjusted. #Left pleural effusion: Likely secondary to acute decompensated heart failure, with concurrent small pericardial effusion. * Patient provided incentive spirometry on discharge. * Repeat CXR within one week to ensure stability of effusion. #Paroxysmal atrial fibrillation and atrial flutter: Remains in NSR. * Start Eliquis 2.5 mg PO BID. Added to discharge medications. * Continue metoprolol-XL 25 mg PO daily. * Further evaluation with Holter monitor as outpatient. #HTN: Remains normotensive off ARB. * Amlodipine discontinued on discharge. * Resume valsartan 80 mg PO daily on discharge. Diet: Heart Healthy DVT PPx: IV Heparin and ALPs CODE: DNR/DNI Problem List: 1. (HFpEF) heart failure with preserved ejection fraction 2. Atrial flutter 3. Paroxysmal atrial fibrillation 4. Pleural effusion, left 5. Acute exacerbation of congestive heart failure 6. HTN (hypertension) Pain Ratin Pain Location: N/A Pain Goal: Remain pain free Pain Plan: Morphine 2 mg IV Q4H PRN for severe pain (scale 7-10) Vicodin 1 tab PO Q6H PRN for moderate pain (scale 4-6) Tylenol 1 tab PO Q6H PRN for mild pain (scale 1-3) Tomorrow's Labs & Rationales: None Discharge Plan Discharge Disposition: home Stable for Discharge? Yes Anticipated Discharge (Day): today LORA LEOS MD 08/21/16 1151: Attending MD Review Statement Attending Statement Attending MD Statement: examined this patient, discuss w/resident/PA/PATIENT CARE ASSISTANT, agreed w/resident/PA/PATIENT CARE ASSISTANT, reviewed EMR data (avail) Attending Assessment/Plan: 85F PMH HTN, HLD, Takotsubo cardiomyopathy, bioprosthetic mitral valve replacement admitted with left shoulder and arm pain progressive shortness of breath over the past few weeks with new onset atrial fibrillation, moderate left sided pleural effusion. No chest pain or palpitations. Vitals stable. Labs show markedly elevated d-dimer, CTA negative for PE. Creatinine stable. Patient feels back to baseline today. She has no complaints. 1. Shortness of breath 2. Moderate left pleural effusion 3. New onset atrial fibrillation 4. Elevated d-dimer 5. L[place] 6. History of MVR 7. History of Takotsubo cardiomyopathy Plan - Stable for discharge home - Unable to obtain thoracentesis due to low volume effusion - Pulmonary consult - Follow cardiology recommendations - Start Eliquis - Continue Metoprolol for rate control - Continue home medications
[2016-08-21 09:02] VITALS: BP 124/74
--- NOTE | 2016-08-21 09:06 | Patient Discharge Instructions ---
Discharge Instructions General Discharge Information You were seen/treated for: Congestive heart failure Paroxysmal atrial fibrillation Left pleural effusion Acute kidney injury Watch for these problems: Worsening shortness of breath Swelling in your legs, ankles or abdomen Persistent cough Chest pain Weakness, fatigue or dizziness Special Instructions: Please follow up with your primary care physician Dr. Fer Medrano within one week of discharge. Please follow up with your production tool engineer Dr. Michele Singh for your heart within one week of discharge. Please follow up with your electronics research engineer Dr. Hakeem Gutierrez for your lungs within one week of discharge. Please have your CXR checked on 08/28/16 and forward results to your primary care physician Dr. Fer Medrano and electronics research engineer Dr. Hakeem Gutierrez. Please take all medications as prescribed. Diet Recommended Diet: Heart Healthy Activity Full Activity/No Limits: Yes Acute Coronary Syndrome Inclusion Criteria At DC or during hospital stay patient has or had the following: ACS DIAGNOSIS No Discharge Core Measures Meds if any: Prescribed or Continued at Discharge Meds if any: NOT Prescribed or Continued at Discharge Congestive Heart Failure Inclusion Criteria At DC or during hospital stay patient has or had the following: CHF DIAGNOSIS Yes Discharge Core Measures Meds if any: Prescribed or Continued at Discharge ADITI/ARB for EF <40% No (EF estimated at 55-60%) Meds if any: NOT Prescribed or Continued at Discharge Cerebrovascular accident Inclusion Criteria At DC or during hospital stay patient has or had the following: CVA/TIA Diagnosis No Discharge Core Measures Meds if any: Prescribed or Continued at Discharge Meds if any: NOT Prescribed or Continued at Discharge Venous thromboembolism Inclusion Criteria VTE Diagnosis No VTE Type NONE VTE Confirmed by (Test) NONE Discharge Core Measures - Per Current guidelines, there needs to be overlap - treatment for the first 5 days of Warfarin therapy. - If discharged on Warfarin prior to 5 days of - overlap therapy, the patient will need to be - assessed for post discharge needs including - *Post discharge parental anticoagulation - *Warfarin and/or parental anticoagulation education - *Follow up date to check INR post discharge At least 5 days overlap therapy as Inpatient No Meds if any: Prescribed or Continued at Discharge Note: Overlap Therapy is Warfarin and Anticoagulant Meds if any: NOT Prescribed or Continued at Discharge Meds if any: NOT Prescribed or Continued at Discharge
[2016-08-21] MEDS ORDERED: ELIQUIS2.5 M1 PO (09:34)
--- NOTE | 2016-08-21 09:36 | PN- Pulmonary ---
Subjective HPI/Critical Care Issues: pt seen and examined instructed to perform incentive spirometry afebrile saturating well on room air hemodynamically stable Objective Current Medications: Current Medications Sig/Jaswant Start time Last Medication Dose Route Stop Time Status Admin Acetaminophen 650 MG Q6P PRN 08/19 0230 AC PO Acetaminophen/ 1 TAB Q6P PRN 08/19 0230 AC Hydrocodone Bitart PO Amlodipine Besylate 5 MG DAILY 08/19 1000 AC 08/20 PO 0835 Apixaban 2.5 MG BID 08/21 1000 AC PO Aspirin 81 MG DAILY 08/19 1000 AC 08/20 PO 0834 Atorvastatin Calcium 20 MG 1700 08/19 1700 AC 08/20 PO 1621 Calcium/Vitamin D 1 TAB DAILY 08/19 1000 AC 08/20 PO 0834 Furosemide 20 MG 7:30 AM, & 4:30 PM 08/20 0730 DC 08/21 IV 0817 Guaifenesin 10 ML Q6P PRN 08/21 0815 AC PO Heparin Sodium 25,000 UNIT Q24H 08/20 0915 DC (Porcine) IV Sodium Chloride 500 ML Metoprolol Succinate 25 MG DAILY 08/19 1000 AC 08/20 PO 0835 Morphine Sulfate 2 MG Q4P PRN 08/19 0230 AC IV Multivitamins 1 TAB DAILY 08/19 1436 AC 08/20 PO 0836 Patient Medication 1 ED .STK-MED ONE 08/20 1351 DC Teaching ED 08/20 1352 Sodium Chloride 1,000 ML Q20H 08/19 1100 DC 08/20 IV 0615 Zolpidem Tartrate 5 MG AT BEDTIME 08/19 2200 AC 08/20 PO 2113 Vital Signs & I&O Last 24 Hrs of Vitals and I&O: Vital Signs Date Time Temp Pulse Resp B/P B/P Pulse O2 O2 Flow FiO2 Mean Ox Delivery Rate 08/21 0902 98.2 89 15 124/74 97 Room Air 08/20 2341 98.8 74 20 124/80 94 Room Air 08/20 1530 98.1 85 18 124/68 94 Room Air Intake & Output 08/21 1600 08/21 0800 08/21 0000 Intake Total 784 Output Total 2 Balance 782 Intake, IV 184 Intake, Oral 600 Output, Other 2 Patient 141 lb Weight Weight Standing Scale Measurement Method Exam Other Physical Findings: Gen - alert and awake HEENT - NCAT CVS - S1, S2, systolic murmur Lungs - mildly diminished breath sounds at the left base otherwise clear Abdomen - soft, non-tender, bs+ Ext - no edema, no cyanosis Results Last 24 Hrs of Lab Results: Laboratory Tests 08/21/16 0650: Anion Gap 12, Estimated GFR 43 L, BUN/Creatinine Ratio 25.0 08/20/16 2350: APTT 87 H 08/20/16 1300: Fluid WBC Cancelled, Fld Total RBCs Counted Cancelled 08/20/16 1300: Fluid Glucose Cancelled, Fluid Total Protein Cancelled, Fluid Albumin Cancelled, Fluid LDH Cancelled, Fluid Amylase Cancelled 08/20/16 1220: APTT 65 H Impression/Plan Impression/Plan Impression/Plan: Impression 85-year-old woman * Acute congestive heart failure with a preserved ejection fraction, bioprosthetic valve * Paroxysmal atrial fibrillation and a flutter * Left-sided pleural effusion that is small nature and not enough for thoracentesis with a trace pericardial effusion Plan - incentive spirometry at least 10 times daily - full instruction and guidance provided on IST for the patient - would repeat CXR within a week to ensure stability of effusion - etiology is most likely heart failure related given a small pericardial effusion as well - f/u cardiology recommendations, ins/outs, diuresis, bmp monitoring - DVT prophylaxis at all times (on a/c) dc planning from pulmonar perspective
[2016-08-21 10:18] VITALS: BP 124/74
--- NOTE | 2016-08-21 13:10 | PN- Cardiology ---
Subjective Subjective: Stable with no symptoms and remaining in NSR. Objective Vital Signs and I&Os Vital Signs Date Time Temp Pulse Resp B/P B/P Pulse O2 O2 Flow FiO2 Mean Ox Delivery Rate 08/21 1018 89 124/74 08/21 1018 89 124/74 08/21 0902 98.2 89 15 124/74 97 Room Air 08/20 2341 98.8 74 20 124/80 94 Room Air 08/20 1530 98.1 85 18 124/68 94 Room Air Intake & Output 08/21 1600 08/21 0800 08/21 0000 08/20 1600 08/20 0800 08/20 0000 Intake Total 784 1000 688.2 685.6 Output Total 2 850 Balance 782 150 688.2 685.6 Intake, IV 184 600 568.2 565.6 Intake, Oral 600 400 120 120 Output, Other 2 Output, Urine 850 Patient 141 lb 142 lb Weight Weight Standing Scale Chair scale Measurement Method Current Medications: Current Medications Sig/Jaswant Start time Last Medication Dose Route Stop Time Status Admin Acetaminophen 650 MG Q6P PRN 08/19 0230 AC PO Acetaminophen/ 1 TAB Q6P PRN 08/19 0230 AC Hydrocodone Bitart PO Amlodipine Besylate 5 MG DAILY 08/19 1000 AC 08/21 PO 1018 Apixaban 2.5 MG BID 08/21 1000 AC 08/21 PO 1018 Aspirin 81 MG DAILY 08/19 1000 AC 08/21 PO 1017 Atorvastatin Calcium 20 MG 1700 08/19 1700 AC 08/20 PO 1621 Calcium/Vitamin D 1 TAB DAILY 08/19 1000 AC 08/21 PO 1018 Furosemide 20 MG 7:30 AM, & 4:30 PM 08/20 0730 DC 08/21 IV 0817 Guaifenesin 10 ML Q6P PRN 08/21 0815 AC 08/21 PO 1258 Heparin Sodium 25,000 UNIT Q24H 08/20 0915 DC (Porcine) IV Sodium Chloride 500 ML Metoprolol Succinate 25 MG DAILY 08/19 1000 AC 08/21 PO 1018 Morphine Sulfate 2 MG Q4P PRN 08/19 0230 AC IV Multivitamins 1 TAB DAILY 08/19 1436 AC 08/21 PO 1018 Patient Medication 1 ED .STK-MED ONE 08/20 1351 DC Teaching ED 08/20 1352 Sodium Chloride 1,000 ML Q20H 08/19 1100 DC 08/20 IV 0615 Zolpidem Tartrate 5 MG AT BEDTIME 08/19 2200 AC 08/20 PO 2113 Results Last 48 Hrs of Labs/Mics: Laboratory Tests 08/21/16 0650: Anion Gap 12, Estimated GFR 43 L, BUN/Creatinine Ratio 25.0 08/20/16 2350: APTT 87 H 08/20/16 1300: Fluid WBC Cancelled, Fld Total RBCs Counted Cancelled 08/20/16 1300: Fluid Glucose Cancelled, Fluid Total Protein Cancelled, Fluid Albumin Cancelled, Fluid LDH Cancelled, Fluid Amylase Cancelled 08/20/16 1220: APTT 65 H 08/20/16 0400: Sodium Cancelled, Potassium Cancelled, Chloride Cancelled, Carbon Dioxide Cancelled, Anion Gap Cancelled, BUN Cancelled, Creatinine Cancelled, BUN/ Creatinine Ratio Cancelled 08/20/16 0345: Anion Gap 12, Estimated GFR 53 L, BUN/Creatinine Ratio 31.0 H, Magnesium 2.0, PT 12.0, INR 1.14, APTT 59 H, CBC w Diff NO MAN DIFF REQ, RBC 4.64, MCV 89.6, MCH 28.6, RDW 14.4, MPV 9.4, Gran % 45.6, Lymphocytes % 42.9, Monocytes % 8.2, Eosinophils % 2.7, Basophils % 0.6, Absolute Granulocytes 2.8, Absolute Lymphocytes 2.6, Absolute Monocytes 0.5, Absolute Eosinophils 0.2, Absolute Basophils 0, PUBS MCHC 31.9 L 08/20/16 0300: APTT Cancelled 08/19/16 1500: APTT 69 H Assessment/Plan Assessment/Plan Assessment: 1. PAF 2. History of HTN 3. Bioprosthetic MVR 4. Possible acute HFpEF, likely related to atrial fibrillation. 5. History of Takotsubo cardiomyopathy Recommendations: - Continue current medications - Continue lasix daily until seen by me in the office. Hopefully the lasix can be tapered off at that time. - Followup labs as outpatient - Holter / event monitor as outpatient. - Continue anticoagulation as outlined. - See me in the office in one week Continue telemetry? No
--- NOTE | 2016-08-21 13:29 | Discharge Summary ---
Visit Information Visit Dates Admission Date: 08/19/16 Discharge Date: 08/21/16 Hospital Course Course Attending Physician: TYLER ESTRADA,MOOKIE Clements Primary Care Physician: Fer CASTANO MD Other Care Providers: Booth Cashier Dr. Saad David MD Consulting Request: 1 Consulting Specialty: Cardiology Consulting Physician: Michele Singh MD Reason for Consult: Shortness of breath Consulting Request: 2 Consulting Specialty: Pulmonary Disease Consulting Physician: Hakeem Gutierrez MD Reason for Consult: dyspnea, atelectasis, left pleural effusion Hospital Course: Ms. Pascual is a 85 y/o F with PMHx of bioprosthetic mitral valve replacement, takotsubo cardiomyopathy and HTN who presented with progressively worsening SOB and bilateral lower extremity swelling x3 weeks. Patient had recently been started on 20 mg of PO Lasix daily by her PCP with partial improvement in her symptoms and a CXR, performed 2 weeks prior to admission, had shown left pleural effusion. On initial presentation to the ED, vitals were normal. Physical exam was remarkable for decreased breath sounds on the left lung base as well as 1+ bilateral lower extremity edema. Labs were remarkable for BUN/Cr 37/1.3, proBNP 3660 and D-dimer 2884. EKG showed atrial fibrillation with controlled ventricular rate. CXR revealed increased moderate pleural effusion with airspace opacity. Patient was admitted for acute decompensated CHF and new-onset paroxysmal atrial fibrillation. Below are the issues that were added during current admission: #Acute decompensated HFpEF: Patient was diuresed with IV Lasix with close monitoring of I/Os and daily BMPs. ECHO was performed which showed normally functioning bioprosthetic mitral valve and normal LVEF, alrg-yt-enmnxjjh aortic sclerosis and elevated RV systolic pressure of 40 mmHg. Doppler ultrasound of bilateral lower extremities and CTA Chest was performed to rule out VTE in the setting of elevated D-dimer and came back negative for DVT and PE, respectively. Shortness of breath and lower extremity edema had resolved by day of discharge. * Patient was instructed to follow up with her public service officer Dr. Saad David within one week of discharge. * Patient will continue lybdk-ow-zcrkledrc Lasix 20 mg PO daily on discharge. #Paroxysmal atrial fibrillation: Atrial fibrillation spontaneously converted to atrial flutter, and then to sinus rhythm. She was continued on her prior to admission metoprolol succinate XL 25 mg PO daily, remaining in sinus rhythm throughout the rest of her hospital course. In view of [id number] score of 3, decision was made to start patient on anticoagulation. Patient was started on IV heparin drip and later switched to Eliquis on day 3 of admission. * Patient will continue taking xvdig-re-lystlyivt metoprolol succinate XL 25 mg PO and Eliquis 2.5 mg PO BID on discharge. #Left pleural effusion: This was felt to be secondary to acute decompensated heart failure, especially in the presence of a concurrent small pericardial effusion. Thoracentesis could not be performed as left pleural effusion was felt to be too small for safe thoracentesis on diagnostic ultrasound. * Patient was instructed to follow up with insulating machine operator Dr. Hakeem Gutierrez as outpatient and have her CXR checked one week after discharge to ensure the stability of pleural effusion. * Patient was provided incentive spirometer on discharge. Allergies: Coded Allergies: shellfish derived (GOUT FLARE UP 08/18/16) Disposition Summary Disposition Principal Diagnosis: Acute decompensated HFpEF Additional Diagnosis: Paroxysmal atrial fibrillation Left pleural effusion Discharge Disposition: home or self care Discharge Instructions General Discharge Information Code Status: Full Code Patient's Diet: Heart Healthy Patient's Activity: Please follow up with your primary care physician Dr. Fer Castano within one week of discharge. Please follow up with your public service officer Dr. Saad David for your heart within one week of discharge. Please follow up with your insulating machine operator Dr. Hakeem Gutierrez for your lungs within one week of discharge. Please have your CXR checked on 08/28/16 and forward results to your primary care physician Dr. Fer Castano and insulating machine operator Dr. Hakeem Gutierrez. Please take all medications as prescribed. Follow-Up Instructions/Appts: Full Activity/No Limits Medications at Discharge Discharge Medications: Stop taking the following medications: Amlodipine Besylate (Amlodipine Besylate) 5 MG TABLET ORAL DAILY Qty = 90 Continue taking these medications: Valsartan (Diovan) 80 MG TABLET 80 Milligram ORAL DAILY Comments: NOT GIVEN Metoprolol Succ XL (Toprol XL) 25 MG TAB 25 Milligram ORAL DAILY Comments: Last Taken: 08/21/16 Time: 10 AM Aspirin (Aspirin*) 81 MG TAB.CHEW 81 Milligram ORAL DAILY Comments: Last Taken: 08/21/16 Time: 10 AM Allopurinol (Allopurinol) 300 MG TABLET 300 Milligram ORAL DAILY Comments: NOT GIVEN Simvastatin (Zocor*) 40 MG TABLET 40 Milligram ORAL AT BEDTIME Comments: Last Taken: 08/20/16 Time: 4 PM Calcium Carbonate/Vitamin D3 (Caltrate 600 + D Tablet) 600 MG-800 TABLET 600 Milligram ORAL DAILY Comments: Last Taken: 08/21/16 Time: 10 AM Furosemide (Furosemide) 20 MG TABLET 20 Milligram ORAL DAILY Comments: Last Taken: 08/21/16 Time: 8 AM Zolpidem Tartrate (Ambien) 5 MG TABLET 5 Milligram ORAL AT BEDTIME Comments: Last Taken: 08/20/16 Time: 9 PM Start taking the following new medications: Apixaban (Eliquis) 2.5 MG TABLET 1 Tablet ORAL TWICE DAILY Qty = 60 No Refills Comments: Last Taken: 08/21/16 Time: 10 AM Copies To: Harpal DAVID MD; EYAD ESTRADA,MSandra RAMIREZ; JENIFER ESTRADA,HAKEEM
== END 2016-08-21 13:00 | disposition home health service (06) | DRG 291 ==
LOC: ERH 21:54 → 1NO 08-19 00:17 → ERHI 08-19 00:17 → ENRESERV 08-19 01:29 → CRI 08-19 03:16 → 1NO 08-19 21:02 → ENPENDDIS 08-21 12:10 → 1NO 08-21 13:00
PROVIDERS: Emergency Medicine; Internal Medicine; Internal Medicine Infectious Disease; Ophthalmology; Pediatrics; ADMIT Internal Medicine
DX: I13.0 Hypertensive heart and chronic kidney disease with heart failure and stage 1 through stage 4 chronic kidney disease, or unspecified chronic kidney disease (principal); I50.33 Acute on chronic diastolic (congestive) heart failure; N17.9 Acute kidney failure, unspecified; I48.92 Unspecified atrial flutter; I31.3 Pericardial effusion (noninflammatory); N18.9 Chronic kidney disease, unspecified; I48.91 Unspecified atrial fibrillation; Z95.2 Presence of prosthetic heart valve; M10.9 Gout, unspecified; H91.10 Presbycusis, unspecified ear; E78.5 Hyperlipidemia, unspecified; Z66 Do not resuscitate; N81.4 Uterovaginal prolapse, unspecified
CPT/HCPCS: 1NSP; 87075; 36415; 82436; 87070; 93005; 93010; 93306; 93970; 96374; 97116-GO; 97161-GP; 99291; J1644; J1940; J3490